=== PATIENT | female | born 1960 | race American Indian/Alaskan Native ===

== ENCOUNTER 2016-11-30 09:38 | Inpatient (IN) | payer OTHER ==
[2016-11-30] MEDS ORDERED: Sodium Chloride 0.9% 1,000 ML IV SCH ×4 (10:00→17:30)
--- NOTE | 2016-11-30 10:00 | ED PDOC ---
Arrival/HPI - General Chief Complaint: Shortness Of Breath Time Seen by Provider: 11/30/16 09:44 Historian: Patient - History of Present Illness Narrative History of Present Illness (Text): 11/30/16 09:56 56 y/o female, pmh including asthma, allergic to theophylline, biba c/o coughing /wheezing and shortness of breath x 2 days. Pt. stated that she has been coughing and feeling wheezing for the past 2 days, sudden onset, admits coughing with phelgm, limited relief with the albuterol nebulizer at home, no chest pain or palpitation, no headache or dizziness, no change in vision, no night sweat, no other medical or psychological complaints. Past Medical History - Provider Review Nursing Documentation Reviewed: Yes - Infectious Disease Hx of Infectious Diseases: None - Tetanus Immunization Tetanus Immunization: Unknown - Cardiac Hx Hypertension: Yes - Pulmonary Hx Asthma: Yes - Neurological Hx Neurological Disorder: No - HEENT Hx HEENT Disorder: (WEARS RX GLASSES) - Renal Hx Renal Disorder: No - Endocrine/Metabolic Hx Endocrine Disorders: No Hx Diabetes Mellitus Type 2: Yes - Hematological/Oncological Hx Cancer: Yes (breast to bone (14 Years)) Hx Chemotherapy: Yes (had chemo ) Other/Comment: bilat mastectomy 2007/ left arm alert - Integumentary Hx Dermatological Disorder: No - Musculoskeletal/Rheumatological Hx Arthritis: Yes - Gastrointestinal Hx Gastrointestinal Disorders: No - Genitourinary/Gynecological Hx Genitourinary Disorders: No - Psychiatric Hx Psychophysiologic Disorder: No Hx Substance Use: No - Surgical History Hx Coronary Artery Bypass Graft: Yes - Anesthesia Hx Anesthesia: Yes Hx Anesthesia Reactions: No Hx Malignant Hyperthermia: No - Suicidal Assessment Feels Threatened In Home Enviroment: No Family/Social History - Physician Review Nursing Documentation Reviewed: Yes Family/Social History: Unknown Family HX Smoking Status: Never Smoked Hx Alcohol Use: No Hx Substance Use: No Hx Substance Use Treatment: No Allergies/Home Meds Allergies/Adverse Reactions: Allergies theophylline Allergy (Verified 11/30/16 13:20) ITCHING Home Medications: Home Meds Medication Instructions Recorded Confirmed Albuterol Sulfate [Proair Hfa] 2 puff IH PRN PRN 11/30/16 11/30/16 Carvedilol [Coreg] mg PO DAILY 11/30/16 Denosumab [Xgeva] 120 mg SC 11/30/16 Glimepiride 2 mg PO DAILY 11/30/16 11/30/16 Insulin Detemir [Levemir] 24 unit SQ HS 11/30/16 11/30/16 Insulin Lispro [humALOG] 7 units SQ TID PRN 11/30/16 11/30/16 Lactobacillus Combination No.8 1 tab PO DAILY 11/30/16 11/30/16 [Adult Probiotic] Letrozole 2.5 mg PO DAILY 11/30/16 11/30/16 Palbociclib [Ibrance] 75 mg PO DAILY 11/30/16 11/30/16 Tiotropium [place] Inhaler 2 puff INH PRN PRN 11/30/16 11/30/16 [Spiriva Inhalation Handihaler Device] Review of Systems - Review of Systems Constitutional: Fatigue. absent: Fevers Eyes: absent: Vision Changes ENT: absent: Hearing Changes Respiratory: SOB, Cough, Wheezing. absent: Sputum Cardiovascular: absent: Chest Pain Gastrointestinal: absent: Abdominal Pain, Diarrhea, Nausea, Vomiting Skin: absent: Rash, Pruritis Neurological: absent: Headache, Dizziness, Focal Weakness Physical Exam Vital Signs Reviewed: Yes Vital Signs Temp Pulse Resp BP Pulse Ox 11/30/16 13:00 99.4 F 112 H 19 145/94 H 96 11/30/16 11:24 133 H 18 175/120 H 95 11/30/16 11:11 137 H 162/105 H 11/30/16 11:10 137 H 19 162/105 H 96 11/30/16 10:55 100.4 F H 11/30/16 10:04 134 H 18 181/120 H 95 11/30/16 09:45 18 96 11/30/16 09:44 99.3 F 138 H 26 H 171/123 H 93 L Temperature: Afebrile Blood Pressure: Hypertensive Pulse: Tachycardic Respiratory Rate: Tachypneic Appearance: Positive for: Well-Appearing, Non-Toxic, Uncomfortable Pain Distress: None Mental Status: Positive for: Alert and Oriented X 3 - Systems Exam Head: Present: Atraumatic, Normocephalic Pupils: Present: PERRL Extroacular Muscles: Present: EOMI Conjunctiva: Present: Normal Mouth: Present: Moist Mucous Membranes Neck: Present: Normal Range of Motion Respiratory/Chest: Present: Clear to Auscultation, Good Air Exchange, Wheezes, Decreased Breath Sounds (bilateral), Rales, Rhonchi, Tachypneic. No: Respiratory Distress, Accessory Muscle Use, Retracting, Tender to Palpation Cardiovascular: Present: Regular Rate and Rhythm, Normal S1, S2. No: Murmurs Abdomen: Present: Normal Bowel Sounds. No: Tenderness, Distention, Peritoneal Signs Back: Present: Normal Inspection Upper Extremity: Present: Normal Inspection. No: Cyanosis, Edema Lower Extremity: Present: Normal Inspection. No: Edema Neurological: Present: GCS=15, Speech Normal, Motor Func Grossly Intact, Gait Normal, Memory Normal Skin: Present: Warm, Dry, Normal Color. No: Rashes Psychiatric: Present: Alert, Oriented x 3, Normal Insight, Normal Concentration Medical Decision Making ED Course and Treatment: 11/30/16 09:58 -labs/ua/troponinVBG -ekg/cxr -IVF @ 75cc/hr./solumedrol/duoneb/oxygen 4L nasal -Observe and reassess 11/30/16 10:34 -Pt. tachycardic, tachypnea, hypoxic, lactic acid 3.7 with code sepsis activated , IV rocephine and azithromycin with blood cultures added. -Pt is not hypotensive, discussed with Dr. Treviño and stated that no indication of IV bolus indicated for 30cc/kg at this time. 11/30/16 10:50 -Sinus Tachycardia @ 135 BPM, no specific ST and T wave changes on the ekg. -Chest xray: infiltrate and scattering on the rt. sided lung wet read which clinically suspecting for pneumonia is high. -Labs are non significant except lactic acid 3.7 with normal wbc, negative d- dimer, negative bnp, negative troponin. IVF changed to 1000cc/hr, will recheck temp. 11/30/16 11:04 -Temp checked 100.4F, tylenol ordered. -Chronic hypertensive, didn't take medication for the past couple days, will give clonidine 0.1mg po -Dr. Padilla (covering Dr. Blackwell) is here and discussed the patient with him including labs/radiology results and medications given in the ER, will admit the patient, request ICU consult. 11/30/16 11:12 -I spoke to the game warden Dr. Loomis, discussed about the case/labs/ radiology image, will come to evaluate the patient to see if the patient is ICU candidate. 11/30/16 11:50 -Dr. Loomis came to evaluate the patient and suggest remote tele, not ICU candidate -I spoke to the clinical specialist medical device for Dr. Padilla, discussed about the case/labs/ radiology result/ICU Dr. Loomis suggestion to tele since I am unable to get in touch with Dr. Padilla after paging overhead. The clinical specialist medical device will come to evaluate the patient and speak to Dr. Padilla. -I spoke to Dr. Treviño and he will put in the admission - Lab Interpretations Lab Results: 11/30/16 10:06 11/30/16 10:06 Lab Results 11/30/16 10:06: pO2 29 L, VBG pH 7.35, VBG pCO2 52.0, VBG HCO3 28.7 H, VBG Total CO2 30.3 H, VBG O2 Sat (Calc) 62.8, VBG Base Excess 2.1 H, VBG Potassium 3.5 L, Sodium 142.0, Chloride 102.0, Glucose 250 H, Lactate 3.7 H, FiO2 21.0, Venous Blood Potassium 3.5 L 11/30/16 10:06: Sodium 142, Chloride 102, Potassium 3.6, Carbon Dioxide 26, Anion Gap 18, BUN 10, Creatinine 0.8, Est GFR ( Amer) > 60, Est GFR (Non- Af Amer) > 60, Random Glucose 242 H, Calcium 9.4, Total Bilirubin 0.5, AST 24, ALT 27, Alkaline Phosphatase 76, Lactate Dehydrogenase 586, Total Creatine Kinase 109, Troponin I < 0.01, NT-Pro-B Natriuret Pep 97.6, Total Protein 8.0, Albumin 4.8, Globulin 3.2, Albumin/Globulin Ratio 1.5 11/30/16 10:06: D-Dimer, Quantitative 0.35 11/30/16 10:06: WBC 5.8 D, RBC 4.14, Hgb 12.5, Hct 38.7, MCV 93.5, MCH 30.2, MCHC 32.3, RDW 14.1, Plt Count 243, MPV 9.7, Gran % 61.2, Lymph % (Auto) 34.0, [place] % (Auto) 3.4, Eos % (Auto) 0.7 L, Baso % (Auto) 0.7, Gran # 3.57, Lymph # 2.0, [place] # 0.2, Eos # 0.0, Baso # 0.04 I have reviewed the lab results: Yes Interpretation: Abnormal lab values (lactic acid. 3.7) - RAD Interpretation Radiology Orders: 11/30/16 09:52 CHEST PORTABLE [RAD] Stat no active disease Inside Account Representative: Radiologist - EKG Interpretation EKG Interpretation (Text): 11/30/16 10:12 Sinus Tachycardia @ 135 BPM, no specific ST and T wave changes on the ekg. Interpreted by ED Physician: Yes Type: 12 lead EKG Comparison: Com.w/previous EKG - Medication Orders Current Medication Orders: Carvedilol (Coreg) 3.125 mg PO DAILY MIGUELANGEL Ceftriaxone Sodium (Rocephin 1 Gram Ivpb) 1 gm in 100 mls @ 100 mls/hr IVPB DAILY MIGUELANGEL PRN Reason: Protocol Azithromycin (Zithromax 500mg In Ns) 500 mg in 250 mls @ 167 mls/hr IVPB DAILY MIGUELANGEL PRN Reason: Protocol Insulin Human Lispro (Humalog Low) 0 units SC ACHS MIGUELANGEL PRN Reason: Protocol Letrozole (Femara) 2.5 mg PO DAILY MIGUELANGEL Levalbuterol HCl (Xopenex) 0.63 mg IH Q2H PRN PRN Reason: Shortness of Breath Levalbuterol HCl (Xopenex) 0.63 mg IH [id number] MIGUELANGEL Methylprednisolone (Solu-Medrol) 40 mg IVP Q12 MIGUELANGEL Non-Formulary Medication (Lactobacillus Combination No.8 [Adult Probiotic]) 1 tab PO DAILY MIGUELANGEL Non-Formulary Medication (Palbociclib [Ibrance]) 75 mg PO DAILY MIGUELANGEL Tiotropium [place] (Spiriva) 18 mcg IH DAILY MIGUELANGEL Discontinued Medications Acetaminophen (Tylenol 325mg Tab) 650 mg PO STAT STA Stop: 11/30/16 10:58 Last Admin: 11/30/16 11:12 Dose: 650 mg Re-Assess: NAHUN Pain/Vitals Document 11/30/16 13:00 SF (Rec: 11/30/16 13:23 SF [facility] [id number]) Vitals Temperature (97.6 F-99.6 F) 99.4 F Temperature Source Rectal Albuterol/Ipratropium (Duoneb 3 Mg/0.5 Mg (3 Ml) Ud) 3 ml IH Q15M MIGUELANGEL Stop: 11/30/16 10:31 Last Admin: 11/30/16 10:35 Dose: 3 ml Aspirin (Aspirin) 325 mg PO STAT STA Stop: 11/30/16 10:34 Last Admin: 11/30/16 10:44 Dose: 325 mg Clonidine HCl (Catapres) 0.1 mg PO STAT STA Stop: 11/30/16 11:06 Last Admin: 11/30/16 11:11 Dose: 0.1 mg Sodium Chloride (Sodium Chloride 0.9%) 1,000 mls @ 75 mls/hr IV .[id number] MIGUELANGEL Last Admin: 11/30/16 10:02 Dose: 75 mls/hr Ceftriaxone Sodium (Rocephin 1 Gram Ivpb) 1 gm in 100 mls @ 200 mls/hr IVPB STAT STA PRN Reason: Protocol Stop: 11/30/16 11:01 Last Admin: 11/30/16 10:44 Dose: 200 mls/hr Azithromycin (Zithromax 500mg In Ns) 500 mg in 250 mls @ 167 mls/hr IVPB STAT STA PRN Reason: Protocol Stop: 11/30/16 12:01 Last Admin: 11/30/16 11:35 Dose: 167 mls/hr Sodium Chloride (Sodium Chloride 0.9%) 1,000 mls @ 1,000 mls/hr IV .Q1H MIGUELANGEL Stop: 11/30/16 11:48 Last Admin: 11/30/16 10:56 Dose: 1,000 mls/hr Sodium Chloride (Sodium Chloride 0.9%) 1,000 mls @ 500 mls/hr IV .Q2H MIGUELANGEL Stop: 11/30/16 13:44 Last Admin: 11/30/16 12:35 Dose: 500 mls/hr Levalbuterol HCl (Xopenex) 0.63 mg IH [id number] PRN PRN Reason: Shortness of Breath Methylprednisolone (Solu-Medrol) 125 mg IVP STAT STA Stop: 11/30/16 09:53 Last Admin: 11/30/16 10:02 Dose: 125 mg Morphine Sulfate (Morphine) 2 mg IVP STAT STA Stop: 11/30/16 12:48 Last Admin: 11/30/16 13:00 Dose: 2 mg Re-Assess: NAHUN Pain Assessment Document 11/30/16 14:00 CLINT (Rec: 11/30/16 14:08 CLINT [email or web address]) Pain Reassessment Is this a pain reassessment? Yes Sleep Is patient sleeping during reassessment? No Presence of Pain Presence of Pain No - PA / MANAGER [employer] / Resident Statement MD/DO has reviewed & agrees with the documentation as recorded. Disposition/Present on Arrival - Present on Arrival Any Indicators Present on Arrival: No History of DVT/PE: No History of Uncontrolled Diabetes: Yes Urinary Catheter: No History of Decub. Ulcer: No History Surgical Site Infection Following: None - Disposition Have Diagnosis and Disposition been Completed?: Yes Diagnosis: Sepsis, Hypoxic, Asthma exacerbation, Fever Disposition: HOSPITALIZED Disposition Time: 10:36 Patient Plan: Admission Patient Problems: Current Active Problems Problem Status Onset Asthma exacerbation Acute Sepsis Acute Hypoxic Acute Fever Acute Condition: GUARDED
[2016-11-30] MEDS: Albuterol-Ipratrop 3 mg / 0.5 (3 ml) UD IH SCH ×3 (10:02→10:35)
[2016-11-30 10:08] LABS: ADD MANUAL DIFF? NO
[2016-11-30 10:13] LABS: BASO # 0.04 K/mm3 (0.0-2.0); BASO % 0.7 % (0.0-3.0); EOS % 0.7 % (1.5-5.0); GRAN # 3.57 (1.4-6.5); GRAN % 61.2 % (50.0-68.0); HEMATOCRIT 38.7 % (36.0-48.0); MEAN CELL VOLUME 93.5 fl (80.0-105.0); MEAN CORPUSCULAR HEMOGLOBIN 30.2 pg (25.0-35.0); MEAN CORPUSCULAR HGB CONC 32.3 g/dl (31.0-37.0); MEAN PLATELET VOLUME 9.7 fl (7.0-11.0); MONO # 0.2 (0.1-0.6); MONO % 3.4 % (1.0-6.0); PLATELET COUNT 243 10^3/uL (120.0-450.0); RED CELL DISTRIBUTION WIDTH 14.1 % (11.5-14.5); WHITE BLOOD COUNT 5.8 10^3/ul (4.5-11.0)
[2016-11-30 10:14] LABS: VENOUS BLOOD GAS BASE EXCESS 2.1 mmol/L (0.0-2.0); VENOUS BLOOD PH 7.35 (7.32-7.43)
[2016-11-30 10:26] LABS: ALB/GLOB RATIO 1.5 (1.1-1.8); ALKALINE PHOSPHATASE 76 U/L (38-133); ALT/SGPT 27 U/L (7-56); AST/SGOT 24 U/L (15-39); BILIRUBIN,TOTAL 0.5 mg/dL (0.2-1.3); BLOOD UREA NITROGEN 10 mg/dL (7-21); CALCIUM 9.4 mg/dL (8.4-10.5); CARBON DIOXIDE 26 mmol/L (21-33); CHLORIDE 102 mmol/L (98-107); GFR AFRICAN-AMERICAN > 60; GLUCOSE,RANDOM 242 mg/dL (70-110); POTASSIUM 3.6 mmol/L (3.6-5.0); SODIUM 142 mmol/L (132-148)
[2016-11-30] MEDS ORDERED: Azithromycin 500MG/NS 250ml 500 MG/250 ML BAG IVPB STA (10:32)
[2016-11-30] MEDS ORDERED: cefTRIAXone 1 gm 1 GM/100 ML BAG IVPB STA (10:32)
[2016-11-30 10:42] LABS: TROPONIN I < 0.01 ng/mL
--- NOTE | 2016-11-30 11:16 | RAD ---
HISTORY: cough and wheezing COMPARISON: 03/06/2016 FINDINGS: LUNGS: No active pulmonary disease. PLEURA: No significant pleural effusion identified, no pneumothorax apparent. CARDIOVASCULAR: Normal. OSSEOUS STRUCTURES: No significant abnormalities. VISUALIZED UPPER ABDOMEN: Normal. OTHER FINDINGS: None. IMPRESSION: No active disease.
[2016-11-30] MEDS ORDERED: Tiotropium 18 mcg Cap For Inhalation INH PRN (12:14)
[2016-11-30] MEDS ORDERED: Albuterol-Ipratrop 3 mg / 0.5 (3 ml) UD IH PRN (12:20)
[2016-11-30 12:23] LABS: URINE BILIRUBIN NEGATIVE (NEGATIVE); URINE BLOOD SMALL (NEGATIVE); URINE GLUCOSE (UA) 500 mg/dL (NEGATIVE); URINE KETONE NEGATIVE (NEGATIVE); URINE LEUKOCYTE ESTERASE NEGATIVE Leu/uL (NEGATIVE); URINE PROTEIN TRACE mg/dL (<30 mg/dL); URINE UROBILINOGEN 0.2 E.U./dL (<1 E.U./dL)
[2016-11-30 12:25] LABS: URINE APPEARANCE CLEAR (CLEAR); URINE COLOR LIGHT YELLOW (YELLOW)
--- NOTE | 2016-11-30 12:27 | CP.PCM.CON ---
History of Present Illness - History of Present Illness History of Present Illness: Patient is 56yo female with PMhx of Asthma, on nebulizers at home, presents to the ER complaining of dry non productive cough which started this morning, associated with SOB and wheezing. Pt reports shes been SOB/wheezing for 2 days, without any alleviation from albuterol which she has been using frequently over last 2 days. Denies fever, chills, chest pain, palpitations, AGUILAR, dizziness. No other constitutional symptoms. In the ER given Kaitlin Gagnon. PMHx: Asthma, DM, HT PSHx: NONE Allergies: Theophylline Meds: as per EMR FHx: NC Review of Systems - Review of Systems Review of Systems: as per HPI Past Patient History - Infectious Disease Hx of Infectious Diseases: None - Tetanus Immunizations Tetanus Immunization: Unknown - Past Social History Smoking Status: Never Smoked - CARDIAC Hx Hypertension: Yes - PULMONARY Hx Asthma: Yes - NEUROLOGICAL Hx Neurological Disorder: No - HEENT Hx HEENT Problems: (WEARS RX GLASSES) - RENAL Hx Chronic Kidney Disease: No - ENDOCRINE/METABOLIC Hx Endocrine Disorders: No Hx Diabetes Mellitus Type 2: Yes - HEMATOLOGICAL/ONCOLOGICAL Hx Cancer: Yes (breast to bone (14 Years)) Hx Chemotherapy: Yes (had chemo ) Other/Comment: bilat mastectomy 2006/ left arm alert - INTEGUMENTARY Hx Dermatological Problems: No - MUSCULOSKELETAL/RHEUMATOLOGICAL Hx Arthritis: Yes - GASTROINTESTINAL Hx Gastrointestinal Disorders: No - GENITOURINARY/GYNECOLOGICAL Hx Genitourinary Disorders: No - PSYCHIATRIC Hx Psychophysiologic Disorder: No Hx Substance Use: No - SURGICAL HISTORY Hx Coronary Artery Bypass Graft: Yes - ANESTHESIA Hx Anesthesia: Yes Hx Anesthesia Reactions: No Hx Malignant Hyperthermia: No Meds Allergies/Adverse Reactions: Allergies Allergy/AdvReac Type Severity Reaction Status Date / Time theophylline Allergy ITCHING Verified 12/18/15 15:15 - Medications Medications: Current Medications Albuterol/Ipratropium (Duoneb 3 Mg/0.5 Mg (3 Ml) Ud) 3 ml IH [id number] MIGUELANGEL Carvedilol (Coreg) 3.125 mg PO DAILY MIGUELANGEL Sodium Chloride (Sodium Chloride 0.9%) 1,000 mls @ 500 mls/hr IV .Q2H MIGUELANGEL Stop: 11/30/16 13:44 Insulin Human Lispro (Humalog Low) 0 units SC ACHS MIGUELANGEL PRN Reason: Protocol Non-Formulary Medication (Lactobacillus Combination No.8 [Adult Probiotic]) 1 tab PO DAILY MIGUELANGEL Tiotropium [place] (Spiriva) 18 mcg IH DAILY MIGUELANGEL Physical Exam - Constitutional Appears: Well, Non-toxic - Head Exam Head Exam: ATRAUMATIC - Eye Exam Eye Exam: EOMI, Normal appearance - ENT Exam ENT Exam: Mucous Membranes Moist - Respiratory Exam Respiratory Exam: Prolonged Expiratory Phase, Wheezes, NORMAL BREATHING PATTERN - Cardiovascular Exam Cardiovascular Exam: REGULAR RHYTHM, +S1, +S2 - GI/Abdominal Exam GI & Abdominal Exam: Normal Bowel Sounds, Soft - Extremities Exam Extremities exam: Positive for: normal inspection - Neurological Exam Neurological exam: Alert, CN II-XII Intact, Oriented x3 Results - Vital Signs Recent Vital Signs: Last Vital Signs Temp 100.4 F H 11/30/16 10:55 Pulse 133 H 11/30/16 11:24 Resp 18 11/30/16 11:24 BP 175/120 H 11/30/16 11:24 Pulse Ox 95 11/30/16 11:24 - Labs Result Diagrams: 11/30/16 10:06 11/30/16 10:06 - Imaging and Cardiology Chest x-ray Status: Image reviewed by me, Report reviewed by me Assessment & Plan - Assessment and Plan (Free Text) Assessment: 56yo female a/w SOB - currently febrile, HD stable, tachy HR 120s - AAOx3, NAD, on exam diffuse wheezing - CXR without focal consolidation - unclear why patient is persistently tachy, (febrile, has been using VIANEY over last 2 days) Recommend - IV steroids - Rocephin, Azithro - BP control - Cardiac Enzymes - LE Duplex - ECHO - FS control - DVT ppx - monitor on telemetry Critical Care time: 35minutes
--- NOTE | 2016-11-30 12:46 | CP.PCM.HP ---
History of Present Illness - History of Present Illness History of Present Illness: Internal Medicine Note - [facility] PGY 1 CC: SOB 56 AA F w PMHx significant for asthma, breast cancer s/p b/l mastectomy on chemotherapy, HTN, and HLD presented with SOB of 2 days duration. Patient states that she took her brovana, albuterol, and two nebulizer treatments at home to no avail. Patient states that her current symptoms are consistent with past asthma attacks. Patient denies any sick contacts, any recent fatigue, f/ch /n/v/d/cp, nor any recent illness. She does state that she recently started having post nasal drip yesterday as well as a cough. PMD: Dr. Blackwell PSH: b/l mastectomy PMH: asthma, breast cancer, HTN, HLD All: Theophylline SHx: Denies tobacco, EtOH, illicits Fam Hx: Non-contributory Present on Admission - Present on Admission Any Indicators Present on Admission: Yes Review of Systems - Hematologic/Lymphatic Additional comments: ROS: Constitutional: pt denies fever, chills, generalized weakness ENT: pt denies dysphagia, otalgia, hearing deficit, rhinorrhea Eyes: pt denies sudden loss of vision, diplopia, blurred vision MSK: +unilateral L knee pain due to recent meniscus tear; lower back pain; pt denies muscle stiffness, joint pain, extremity cramping Cardio: pt denies heart murmur, cp Pulm: +See hpi GI: pt denies loss of appetite, abdominal pain, constipation, melena, n/v/d : pt denies burning on urination, urinary frequency, hematuria, urinary urgency Neuro: pt denies paresis, paresthesia, dizziness, flores, numbness, tingling Derm: pt denies skin changes, lesions, nail changes Endo: pt denies intolerance to heat/cold, diaphoresis, night sweats, polydipsia Psych: pt denies anxiety, depression, mood changes Past Patient History - Infectious Disease Hx of Infectious Diseases: None - Tetanus Immunizations Tetanus Immunization: Unknown - Past Social History Smoking Status: Never Smoked - CARDIAC Hx Hypertension: Yes - PULMONARY Hx Asthma: Yes - NEUROLOGICAL Hx Neurological Disorder: No - HEENT Hx HEENT Problems: (WEARS RX GLASSES) - RENAL Hx Chronic Kidney Disease: No - ENDOCRINE/METABOLIC Hx Endocrine Disorders: No Hx Diabetes Mellitus Type 2: Yes - HEMATOLOGICAL/ONCOLOGICAL Hx Cancer: Yes (breast to bone (14 Years)) Hx Chemotherapy: Yes (had chemo ) Other/Comment: bilat mastectomy 2006/ left arm alert - INTEGUMENTARY Hx Dermatological Problems: No - MUSCULOSKELETAL/RHEUMATOLOGICAL Hx Arthritis: Yes - GASTROINTESTINAL Hx Gastrointestinal Disorders: No - GENITOURINARY/GYNECOLOGICAL Hx Genitourinary Disorders: No - PSYCHIATRIC Hx Psychophysiologic Disorder: No Hx Substance Use: No - SURGICAL HISTORY Hx Coronary Artery Bypass Graft: Yes - ANESTHESIA Hx Anesthesia: Yes Hx Anesthesia Reactions: No Hx Malignant Hyperthermia: No Meds Allergies/Adverse Reactions: Allergies Allergy/AdvReac Type Severity Reaction Status Date / Time theophylline Allergy ITCHING Verified 11/30/16 13:20 Physical Exam - Additional Findings Additional findings: Phys Exam: VS as below Constitutional: a&o x 4, nad Head and Neck: neck supple, no jvd, trachea midline, carotid midline, no cervical/head mass Eyes: lance, nonicteric sclera, eom intact ENT: auditory acuity grossly intact, throat not congested, no nasal deformity Cardio:+tachycardic; regular rhythm, no m/r/g, no carotid bruit, nml s1, s2 Pulm: no accessory muscle use, equal nml breath sounds bilaterally, ctab Abd: s/nt/nd, nbs x 4 q, no palpable masses Derm: no rashes, no ulcers, no lesions Extr: +pain limited ROM of L knee; no edema, no cyanosis, no calf tenderness, no lesions, no varicosities Neuro: cn II-XII grossly intact, ue and le 5/5 muscle strength bilaterally, no los ue, le bilaterally and core Results - Vital Signs Recent Vital Signs: Last Vital Signs Temp 100.4 F H 11/30/16 10:55 Pulse 133 H 11/30/16 11:24 Resp 18 11/30/16 11:24 BP 175/120 H 11/30/16 11:24 Pulse Ox 95 11/30/16 11:24 - Labs Result Diagrams: 11/30/16 10:06 11/30/16 10:06 Labs: Laboratory Results - last 24 hr 11/30/16 12:18 Urine Color Light yellow Urine Appearance Clear Urine pH 7.0 Ur Specific [place] 1.015 Urine Protein Trace H Urine Glucose (UA) 500 H Urine Ketones Negative Urine Blood Small H Urine Nitrate Negative Urine Bilirubin Negative Urine Urobilinogen 0.2 Ur Leukocyte Esterase Negative Assessment & Plan - Assessment and Plan (Free Text) Assessment: This is a 55 yo F with history of asthma, breast cancer s/p b/l mastectomy on chemotherapy, HTN, and HLD who presents with chief complaint of shortness of breath. Admitted to telemetry due to tachycardia Plan: 1) Shortness of breath likely 2/2 Asthma Exacerbation VS Pneumonia VS PE - Satting 95-100% on RA after Duonebs treatments and O2 2L - No history of prior blood clots, but active cancer so at increased risk for clots - no clinical signs of DVT, d-dimer negative, PE unlikely - EKG in ED notable for tachycardia and non-specific t-wave abnormalities, repeat EKG in AM - 1 x 125mg IV solumedrol in ED, 40mg BID IV ordered - Continue Xopenex, q6 scheduled q2 prn; continue home medications 2) SIRS 2 VS Sepsis - Elevated HR 2/2 stress vs breathing treatments, vs tachyarrhythmia vs infection - Fever at 100.4 - Lactate elevated - CXR was normal, cannot ID another source of infection - Currently hemodynamically stable - Rocephin and Azithromycin started empirically - NS at 100 mls/hr - Continue to monitor 3) HTN - Elevated BP on arrival, SBP > 180, improved since arrival - Restarted home Cozaar - Continue to monitor 4) DM -continue home oral antihyperglycemics -fingersticks ACHS Dispo: Telemetry FEN: Heart-healthy diet Access: Peripheral IV Consults: none Ppx: Protonix for GI, SCDs for DVT (pt has refused lovenox in the past) Case discussed, reviewed, and course of care agreed upon with Dr. Padilla.
[2016-11-30] MEDS ORDERED: Morphine 2 mg/ml ISec IVP STA (12:47)
[2016-11-30 12:51] LABS: URINE BACTERIA FEW (NEG); URINE WBC 0 - 2 /hpf (0-6)
[2016-11-30 12:57] LABS: ARTERIAL BLOOD GAS HCO3 22.6 mmol/L (21-28); ARTERIAL BLOOD GAS PH 7.43 (7.35-7.45)
[2016-11-30] MEDS ORDERED: Levalbuterol 0.63 MG/3 ML Inhal Soln UD IH PRN (13:11)
[2016-11-30 13:13] LABS: VENOUS BLOOD GAS BASE EXCESS -1.5 mmol/L (0.0-2.0); VENOUS BLOOD PH 7.37 (7.32-7.43)
[2016-11-30] MEDS ORDERED: Albuterol HFA 90 mcg/actuation (8 g) IH PRN (13:54)
[2016-11-30] MEDS ORDERED: Albuterol-Ipratrop 3 mg / 0.5 (3 ml) UD IH SCH (14:00)
[2016-11-30 15:39] VITALS: BMI 34.8
[2016-11-30] MEDS ORDERED: Pneumococcal 23-Valent Vaccine IM ONE (15:41)
--- NOTE | 2016-11-30 16:27 | CARD ---
APPROVED REPORT EKG Measurement Heart [id number] <Conclusion> Sinus tachycardia Nonspecific ST and T wave abnormality Abnormal ECG
--- NOTE | 2016-11-30 16:49 | PCM.SEPTIC ---
<LauraEverett summers - Last Filed: 11/30/16 17:10> Sepsis Progress Note - Reassessment Type Date of Evaluation: 11/30/16 Time of Evaluation: 04:35 Reassessment Type: Non-invasive reassessment - Non Invasive Reassessment Were the most recent vital sign reviewed: Yes Vital Sign (Latest): Temp: 99.7 Blood Pressure: 176/110 Heart Rate: 124 Respiratory Rate: 18 O2Sat: 96 Cardiovascular: Yes: Tachycardia (Regular rhythm) Respiratory: Yes: Wheezing (Mildly dyspneic) Capillary Refill: Normal (Less than 2 sec) Pulses: Normal Radial (Bounding), Normal Dorsalis Pedis (Bounding), Normal Posterior Tibialis Skin: Normal Color, Warm <Sheryl Mcdonough - Last Filed: 11/30/16 17:19> Sepsis Progress Note - Non Invasive Reassessment Vital Sign (Latest): Temp Pulse Resp BP Pulse Ox 99.4 F 112 H 19 145/94 H 96 11/30/16 15:20 11/30/16 15:20 11/30/16 15:20 11/30/16 15:20 11/30/16 13:00 Attending/Attestation - Attestation I have personally seen and examined this patient.: Yes I have fully participated in the care of the patient.: Yes I have reviewed all pertinent clinical information, including history, physical exam and plan: Yes Notes (Text): 11/30/16 17:14 Pt was evaluated at 4:35 PM Nitropaste was ordered for high BP O2 sat was 96 on 3 L O2 by NC Xopenex ordered for wheezing.
[2016-11-30] MEDS: Insulin Lispro (humaLOG) LOW Coverage SC SCH ×2 (17:15→21:35)
[2016-11-30] MEDS ORDERED: Nitroglycerin 2% Ointment Foilpak UD TOP ONE (17:25)
[2016-11-30] MEDS: Levalbuterol 0.63 MG/3 ML Inhal Soln UD IH PRN ×2 (17:57→23:06)
[2016-11-30] MEDS: Levalbuterol 0.63 MG/3 ML Inhal Soln UD IH SCH (20:15)
[2016-11-30] MEDS: MethylPREDNISolone 40 mg Vial IVP SCH (21:02)
[2016-12-01] MEDS ORDERED: MethylPREDNISolone 40 mg Vial IVP ONE (00:05)
[2016-12-01] MEDS: Levalbuterol 0.63 MG/3 ML Inhal Soln UD IH SCH ×4 (02:15→21:00)
[2016-12-01 07:40] LABS: ALB/GLOB RATIO 1.3 (1.1-1.8); ALKALINE PHOSPHATASE 69 U/L (38-133); ALT/SGPT 22 U/L (7-56); AST/SGOT 19 U/L (15-39); BILIRUBIN,TOTAL 0.4 mg/dL (0.2-1.3); BLOOD UREA NITROGEN 13 mg/dL (7-21); CALCIUM 8.2 mg/dL (8.4-10.5); CARBON DIOXIDE 24 mmol/L (21-33); CHLORIDE 105 mmol/L (95-110); CHOLESTEROL 222 mg/dL (130-200); GFR AFRICAN-AMERICAN > 60; GLUCOSE,RANDOM 267 mg/dL (70-110); MAGNESIUM 2.1 mg/dL (1.7-2.2); PHOSPHOROUS 3.6 mg/dL (2.5-4.5); POTASSIUM 3.9 mmol/L (3.6-5.0); SODIUM 141 mmol/L (132-148); TOTAL PROTEIN 7.7 g/dL (5.8-8.3)
[2016-12-01 07:46] LABS: BASO # 0.01 K/mm3 (0.0-2.0); BASO % 0.2 % (0.0-3.0); GRAN # 4.33 (1.4-6.5); GRAN % 77.9 % (50.0-68.0); HEMATOCRIT 38.6 % (36.0-48.0); LYMPH # 1.1 (1.2-3.4); LYMPH % 19.4 % (22.0-35.0); MEAN CELL VOLUME 93.7 fl (80.0-105.0); MEAN CORPUSCULAR HEMOGLOBIN 29.4 pg (25.0-35.0); MEAN CORPUSCULAR HGB CONC 31.3 g/dl (31.0-37.0); MONO # 0.1 (0.1-0.6); MONO % 2.5 % (1.0-6.0); RED CELL DISTRIBUTION WIDTH 14.6 % (11.5-14.5); WHITE BLOOD COUNT 5.6 10^3/ul (4.5-11.0)
[2016-12-01] MEDS: Insulin Lispro (humaLOG) LOW Coverage SC SCH ×4 (08:17→21:50)
[2016-12-01] MEDS: cefTRIAXone 1 gm 1 GM/100 ML BAG IVPB SCH (09:22)
[2016-12-01] MEDS: MethylPREDNISolone 40 mg Vial IVP SCH ×2 (09:22→21:50)
[2016-12-01] MEDS: Tiotropium 18 mcg Cap For Inhalation IH SCH (09:22)
[2016-12-01] MEDS: Sodium Chloride 0.45% 1,000 ML IV SCH (09:23)
[2016-12-01] MEDS: LACTOBACILLUS COMBINATION NO 8 PO SCH (09:32)
[2016-12-01] MEDS ORDERED: PALBOCICLIB 75 MG PO SCH (10:00)
[2016-12-01] MEDS: Azithromycin 500MG/NS 250ml 500 MG/250 ML BAG IVPB SCH (11:01)
[2016-12-01] MEDS: Levalbuterol 0.63 MG/3 ML Inhal Soln UD IH PRN (18:12)
[2016-12-01] MEDS ORDERED: guaiFENesin DM 100 mg-10 mg/5 ml UD PO PRN (19:30)
--- NOTE | 2016-12-01 19:34 | CON ---
DATE: 12/01/2016 The patient was seen and examined at bedside. We were asked by Dr. Campbell, high school social studies tutor, to evaluate and treat this 56 years old -[place] female who comes into [facility] with chief complaint of shortness of breath, wheezing and cough. HISTORY OF PRESENT ILLNESS: The patient developed signs of upper respiratory infection 5 days ago. This progressed with symptoms of bronchitis and final exacerbation of asthma. She did nebulizer treatments at home, but was not able to decrease her symptoms and that is why she came to emergency room. PAST MEDICAL HISTORY: Positive for bronchial asthma, breast cancer, status post bilateral mastectomy, hypertension. ALLERGIES: SHE IS ALLERGIC TO THEOPHYLLINE. SOCIAL HISTORY: Nonsmoker. Nondrinker. Never used illicit drugs. FAMILY HISTORY: No history of inherited diseases. PRIMARY CARE PHYSICIAN: Dr. Blackwell. DIESEL SCOOP OPERATOR: Dr. Braga. REVIEW OF SYSTEMS: Review of systems was conducted by reviewing all sources. CONSTITUTIONAL: No fever, but shortness of breath and cough. EARS, NOSE, AND THROAT: Nasal congestion. NECK: No complaints. CHEST: See history of present illness. CARDIOVASCULAR: Negative. GI: Negative. The rest of the systems were reviewed and found to be negative. PHYSICAL EXAMINATION: VITAL SIGNS: As follows; temperature 98, respirations 22, pulse is 96, blood pressure 110/70. HEAD, EARS, NOSE, AND THROAT: Normocephalic and atraumatic. CARDIOVASCULAR: S1 and S2. No S3, irregular. CHEST: Status post bilateral mastectomy. PULMONARY: Diffuse bilateral expiratory and inspiratory wheezes and moderate airway obstruction. GASTROINTESTINAL: Soft, nontender. There was no organomegaly. : Within normal limits EXTREMITIES: No pedal edema. NEUROLOGIC: No focal deficits. SKIN: Clear with no cyanosis and no skin rashes. LABORATORY DATA: WBC is 5.8, hemoglobin of 12.5, platelet count of 243,000. Chemistries are normal except for elevated blood sugar at 240. ASSESSMENT: 1. Exacerbation of bronchial asthma. 2. Acute bronchitis. 3. Breast cancer, status post bilateral mastectomy, on chemotherapy. 4. Hypertension. PLAN: The patient's chest x-ray does not reveal pneumonia. Her D-dimer is negative. Current diagnosis is exacerbation of asthma secondary to acute bronchitis. We will treat with intravenous steroids. Intravenous antibiotics as ordered already and nebulized Brovana and budesonide as well as Spiriva that she is remaining on. Rocephin and azithromycin was started already. The patient's condition started to improve. We will follow closely. We will evaluate differential and CBC. If her eosinophil count is elevated, she may be a candidate of Nucala. Todd Werner MD MTDD
[2016-12-01] MEDS: Fluticasone Nasal 50 mcg/Spray NS PRN (19:55)
--- NOTE | 2016-12-01 19:59 | PN ---
DATE: I am covering Dr. Blackwell today, who is off. SUBJECTIVE: I saw Niru resting in bed. She has oxygen on, IV fluids running, and she is short of breath, little bit of a wheeze, lying in bed. She got some IV Solu-Medrol. I will consult Pulmonary and Cardio. Blood pressure is quite high. She is uncomfortable and using oxygen, not really hungry yet. She is a 56-year-old female with shortness of breath, today comes in, she is getting nebulizer treatments, IV Solu-Medrol. I will put her back on her insulin and diabetes medications and her blood pressure is out of control, I will put her on some blood pressure medications. I gave her Norvasc 5 mg, increased the Cozaar to 50 mg a day, called in Cardiology. PHYSICAL EXAMINATION: VITAL SIGNS: Today, she has a 98.3 temperature, 87 pulse, 168/110 blood pressure, 19 respiratory rate, 100% O2 saturation via nasal cannula. HEENT: Head atraumatic and normocephalic. Throat moist. NECK: Supple. HEART: Regular rate. LUNGS: Decreased breath sounds with wheezes, congestion, changes with cough, very tight. ABDOMEN: Soft, obese, nontender. EXTREMITIES: No edema. MEDICATIONS: She will currently be on Coreg and Cozaar at higher dose, Femara, insulin coverage, probiotic, Rocephin IV. I changed the IV fluids from 0.9 to 0.5 normal, also less rate at 40 from 50 because she is starting to swell up. Solu-Medrol, she is at 40, I will keep her at 40 IV q. 12 hours. She is on Spiriva, Tylenol, Xopenex inhaler round the clock, Zithromax IV. LABORATORY DATA: She has a 5.6 white count, 12.1 hemoglobin, 38.6 hematocrit with a 233 platelets. D-dimer was okay at 0.35. Sodium 141, potassium 3.9, BUN 30, creatinine 0.7, GFR is greater than 60. Her blood sugars have been 351, 254, 332 and 267. I will put her on her Levemir at night and her p.o. medications. Her calcium is 8.2, phosphorus is 3.6, magnesium 2.1. Total bilirubin is 0.4, AST is 19, ALT is 22, alkaline phosphatase is 69, total protein 7.7, ASSESSMENT AND PLAN: She is still tight, is having a bad chronic obstructive pulmonary disease with hypertension and elevated blood sugars. Consult Pulmonary, Cardio. Add diabetes medications. Add blood pressure medications. She is to get out of bed to chair today. I told things will start to feel better respiratorily. Tristian Campbell DO
[2016-12-01] MEDS: Insulin Detemir 100 units/ml Vial (Levemir) SC SCH (21:49)
[2016-12-02] MEDS: Levalbuterol 0.63 MG/3 ML Inhal Soln UD IH PRN ×2 (01:22→06:50)
[2016-12-02] MEDS: Levalbuterol 0.63 MG/3 ML Inhal Soln UD IH SCH ×4 (02:50→20:25)
[2016-12-02 07:42] LABS: HEMATOCRIT 38.4 % (36.0-48.0); MEAN CELL VOLUME 94.3 fl (80.0-105.0); MEAN CORPUSCULAR HEMOGLOBIN 29.2 pg (25.0-35.0); MEAN PLATELET VOLUME 9.3 fl (7.0-11.0); RED CELL DISTRIBUTION WIDTH 14.7 % (11.5-14.5); WHITE BLOOD COUNT 6.5 10^3/ul (4.5-11.0)
[2016-12-02 08:00] LABS: ALB/GLOB RATIO 1.4 (1.1-1.8); ALKALINE PHOSPHATASE 61 U/L (38-133); ALT/SGPT 24 U/L (7-56); AST/SGOT 25 U/L (15-39); BILIRUBIN,TOTAL 0.2 mg/dL (0.2-1.3); BLOOD UREA NITROGEN 16 mg/dL (7-21); CARBON DIOXIDE 24 mmol/L (21-33); CHLORIDE 105 mmol/L (98-107); GFR AFRICAN-AMERICAN > 60; GLUCOSE,RANDOM 285 mg/dL (70-110); POTASSIUM 3.9 mmol/L (3.6-5.0); SODIUM 141 mmol/L (132-148); TOTAL PROTEIN 7.2 g/dL (5.8-8.3)
[2016-12-02] MEDS: Insulin Lispro (humaLOG) LOW Coverage SC SCH (08:16)
[2016-12-02] MEDS: Sodium Chloride 0.45% 1,000 ML IV SCH (08:17)
[2016-12-02] MEDS ORDERED: Promethazine DM 6.25 mg-15 mg/5 ml Syrup PO PRN (09:31)
[2016-12-02] MEDS: LACTOBACILLUS COMBINATION NO 8 PO SCH (09:51)
[2016-12-02] MEDS: Azithromycin 500MG/NS 250ml 500 MG/250 ML BAG IVPB SCH (09:53)
[2016-12-02] MEDS: MethylPREDNISolone 40 mg Vial IVP SCH ×3 (09:54→23:30)
[2016-12-02] MEDS: Tiotropium 18 mcg Cap For Inhalation IH SCH (09:55)
--- NOTE | 2016-12-02 10:54 | CARD ---
APPROVED REPORT EKG Measurement Heart [id number] <Conclusion> Sinus rhythm with short OK Nonspecific ST and T wave abnormality Abnormal ECG
[2016-12-02] MEDS: cefTRIAXone 1 gm 1 GM/100 ML BAG IVPB SCH ×2 (11:18→14:55)
[2016-12-02] MEDS: Insulin Lispro (humaLOG) MEDIUM Coverage SC SCH ×2 (11:37→16:25)
--- NOTE | 2016-12-02 13:10 | PN ---
PULMONARY PROGRESS NOTE DATE: 12/02/2016 SUBJECTIVE: The patient was seen and examined at bedside. She is coughing frequently. She is still moderately short of breath and wheezing on exam. She was given emergency treatments with nebulizer, treatment with Xopenex; however she is still in moderate bronchospasm. PHYSICAL EXAMINATION VITAL SIGNS: Her temperature is 98.6, pulse 106, respirations 20, pulse oximetry is 100 on nasal cannula, blood pressure is 148/98. Her intake and output is positive 1000 mL. HEENT: Within normal limits. NECK: Supple. There is no jugular vein distention. CARDIOPULMONARY: S1 and S2, no S3. Regular. LUNGS: There is diffuse bilateral expiratory and inspiratory wheezes with moderate airway obstruction. No crackles. ABDOMEN: Soft, nontender. There is no organomegaly. EXTREMITIES: Trace pedal edema. SKIN: Clear. There is no cyanosis and no skin rashes. NEUROLOGIC: Limited at present time. I reviewed her today's blood work; her chemistries are normal except for elevation of blood sugar. Her WBC is 6.5, hemoglobin of 11.9. I reviewed the patient's chest x-ray, which is clear. ASSESSMENT: 1. Exacerbation of severe bronchial asthma. 2. Acute bronchitis. 3. Inability to clear secretions. 4. Breast cancer, status post bilateral mastectomy, on chemotherapy. 5. Hypertension. PLAN: The patient has not improved, still in moderate bronchospasm,very uncomfortable and coughing nonstop. We will introduce Mucomyst to add aid expectoration. We will discontinue Robitussin and start Phenergan and Codeine for cough. Intravenous steroids will continue at moderately high dose. Antibiotics and nebulizer treatments as well as chest physical therapy will be ordered. Todd Werner MD MTDD
[2016-12-02] MEDS: Acetylcysteine 20% Inhal Soln (4ml) IH SCH (20:25)
[2016-12-02] MEDS: Insulin Detemir 100 units/ml Vial (Levemir) SC SCH (23:31)
--- NOTE | 2016-12-03 00:37 | PN ---
SUBJECTIVE: I saw her resting comfortably in bed. She is more shortness of breath this morning, coughing and congested even though she is getting breathing treatments and on IV Solu-Medrol. She feels worse than yesterday and did not sleep well last night. PHYSICAL EXAMINATIONS: VITAL SIGNS: Temperature 98.7, pulse 97, blood pressure 133/96, respiratory rate 20, and 100% O2 saturation on nasal cannula. HEENT: Head is atraumatic and normocephalic. Throat moist. NECK: Supple. HEART: Regular rate. LUNGS: Decreased breath sounds, poor rales, congestion, wheezing, changes with cough and worse than yesterday, I agree with her. ABDOMEN: Soft, obese, nontender, positive bowel sound. EXTREMITIES: No edema. MEDICATIONS: She is on N-acetylcysteine, Amaryl, Coreg and Cozaar. I will increase the Cozaar to 100 mg since the blood pressure has pumped up, Femara, Flonase, insulin, lactobacillus, Levemir, Norvasc, Phenergan, Rocephin, IV fluids, Solu-Medrol bump up from 40 twice a day to three times a day, Spiriva, Tylenol, Xopenex, azithromycin, I am going to change from IV to p.o. because its bothering her wrist IV infusion and it is burning her. She does not want anymore, so I was making it to p.o. She has a 6.5 white count, 11.9 hemoglobin, 30.4 hematocrit, with a 257 platelets. Sodium 141, potassium 3.9, BUN 16, creatinine 0.7, GFR is greater than 60, sugar 285, calcium 8, total bilirubin 0.28, AST is 25, ALT 24, alkaline phosphatase 61, and total protein 7.2. ASSESSMENT AND PLAN: She is here for chronic obstructive pulmonary disease, hypertension, shortness of breath, diabetes. I am going to change the Zithromax to p.o. and I will increase the Solu-Medrol q.8. We will check her labs tomorrow. The patient a little bit worse today than yesterday. Hopefully, she will improve and steroids will start to work as per pulmonary and cardiology. Tristian Campbell DO [facility] # [id number]
[2016-12-03] MEDS: Insulin Lispro (humaLOG) MEDIUM Coverage SC SCH ×5 (01:15→21:30)
[2016-12-03] MEDS: Levalbuterol 0.63 MG/3 ML Inhal Soln UD IH SCH ×4 (01:39→20:06)
[2016-12-03] MEDS: MethylPREDNISolone 40 mg Vial IVP SCH ×3 (05:46→21:38)
[2016-12-03] MEDS: Acetylcysteine 20% Inhal Soln (4ml) IH SCH ×2 (08:01→20:06)
[2016-12-03] MEDS: Budesonide 0.5 mg/2 ml Inhal Susp UD IH SCH ×2 (08:01→20:06)
[2016-12-03 08:04] LABS: GRAN # 4.55 (1.4-6.5); GRAN % 71.9 % (50.0-68.0); HEMATOCRIT 39.9 % (36.0-48.0); LYMPH # 1.5 (1.2-3.4); LYMPH % 23.7 % (22.0-35.0); MEAN CORPUSCULAR HEMOGLOBIN 29.4 pg (25.0-35.0); MEAN CORPUSCULAR HGB CONC 31.6 g/dl (31.0-37.0); MEAN PLATELET VOLUME 9.6 fl (7.0-11.0); MONO # 0.3 (0.1-0.6); MONO % 4.4 % (1.0-6.0); RED CELL DISTRIBUTION WIDTH 14.3 % (11.5-14.5); WHITE BLOOD COUNT 6.3 10^3/ul (4.5-11.0)
[2016-12-03 08:15] LABS: ALB/GLOB RATIO 1.4 (1.1-1.8); ALKALINE PHOSPHATASE 67 U/L (38-133); ALT/SGPT 29 U/L (7-56); AST/SGOT 18 U/L (15-39); BILIRUBIN,TOTAL 0.3 mg/dL (0.2-1.3); BLOOD UREA NITROGEN 17 mg/dL (7-21); CALCIUM 8.6 mg/dL (8.4-10.5); CARBON DIOXIDE 22 mmol/L (21-33); CHLORIDE 105 mmol/L (98-107); GFR AFRICAN-AMERICAN > 60; GLUCOSE,RANDOM 250 mg/dL (70-110); SODIUM 139 mmol/L (132-148); TOTAL PROTEIN 7.4 g/dL (5.8-8.3)
[2016-12-03] MEDS: cefTRIAXone 1 gm 1 GM/100 ML BAG IVPB SCH (10:41)
[2016-12-03] MEDS: Tiotropium 18 mcg Cap For Inhalation IH SCH (10:42)
[2016-12-03] MEDS: Sodium Chloride 0.45% 1,000 ML IV SCH (10:58)
[2016-12-03] MEDS: LACTOBACILLUS COMBINATION NO 8 PO SCH (11:04)
--- NOTE | 2016-12-03 12:15 | PN ---
DATE: 12/03/2016 SUBJECTIVE: The patient appears comfortable this morning. She is not short of breath at rest. PHYSICAL EXAMINATION: VITAL SIGNS: Temperature is 98.4, pulse on the monitor is 88, respiratory rate 18/20, blood pressure 136/94. Oxygen saturation on nasal canula is 98%. HEENT: Normocephalic and atraumatic. NECK: No JVD. CARDIOVASCULAR: Positive S1 and S2. No S3 gallop. LUNGS: Decreased breath sounds at the bases. Minimal rhonchi. Minimal wheezing. GASTROINTESTINAL: Abdomen is soft, nontender, and nondistended. Bowel sounds are positive. EXTREMITIES: No clubbing, cyanosis, or edema. Calves are nontender to palpation. SKIN: No acute rash. NEUROLOGIC: Limited at the present time. IMPRESSION: 1. Acute bronchitis. 2. Asthma. 3. Hypertension. 4. History of breast cancer. PLAN: The patient appears comfortable this morning. She is not short of breath at rest. She does state to feeling better. On physical exam, only mild bronchospasm is noted. In addition, there is no significant alveolar-arterial gradient. I will continue with the current nebulizer treatments and decrease the intravenous steroids this morning. I will also start inhaled Pulmicort. The patient remains on antibiotic therapy. There are no temperatures noted. There is no leukocytosis. Clinical status of the patient is certainly improved-compared to the initial presentation. The patient is advised to be out of bed as much as possible. I will discuss the above with the attending physician. Simeon Coe MD MTDD
--- NOTE | 2016-12-03 16:15 | CP.PCM.PN ---
Subjective - Date & Time of Evaluation Date of Evaluation: 12/03/16 Time of Evaluation: 07:50 - Subjective Subjective: Pt s/e bedside. Doing much better than Saturday. Patient herself feels much better and states that she can breathe easier. No acute events. Objective - Vital Signs/Intake and Output Vital Signs (last 24 hours): Temp Pulse Resp BP Pulse Ox 98.3 F 90 20 141/96 H 98 12/03/16 12:00 12/03/16 12:00 12/03/16 12:00 12/03/16 12:00 12/03/16 06:00 Intake and Output: 12/03/16 12/03/16 06:59 18:59 Intake Total 970 Output Total 900 Balance 70 - Medications Medications: Current Medications Acetaminophen (Tylenol 325mg Tab) 650 mg PO Q6H PRN PRN Reason: Temperature Last Admin: 12/02/16 20:24 Dose: 650 mg Acetylcysteine (Acetylcysteine 20%) 4 ml IH BIDRESP [facility] Last Admin: 12/03/16 08:01 Dose: 4 ml Amlodipine Besylate (Norvasc) 5 mg PO DAILY [facility] Last Admin: 12/03/16 10:43 Dose: 5 mg Azithromycin (Zithromax) 500 mg PO DAILY [facility] PRN Reason: Protocol Last Admin: 12/03/16 10:42 Dose: 500 mg Budesonide (Pulmicort Respules) 0.5 mg IH [id number] [facility] Last Admin: 12/03/16 08:01 Dose: 0.5 mg Clonidine HCl (Catapres) 0.1 mg PO Q6H PRN PRN Reason: Systolic Blood Pressure Fluticasone Propionate (Flonase) 1 actuation NS DAILY PRN PRN Reason: NASAL CONGESTION Last Admin: 12/01/16 19:55 Dose: 1 actuation Glimepiride (Amaryl) 2 mg PO DAILY [facility] Last Admin: 12/03/16 10:43 Dose: 2 mg Ceftriaxone Sodium (Rocephin 1 Gram Ivpb) 1 gm in 100 mls @ 100 mls/hr IVPB DAILY [facility]ANG[facility] PRN Reason: Protocol Last Admin: 12/03/16 10:41 Dose: 100 mls/hr Sodium Chloride (Sodium Chloride 0.45%) 1,000 mls @ 40 mls/hr IV .Q24H [facility] Last Admin: 12/03/16 10:58 Dose: 40 mls/hr Insulin Detemir (Levemir) 15 unit SC HS [facility] Last Admin: 12/02/16 23:31 Dose: 15 unit Insulin Human Lispro (Humalog Med) 0 units SC ACHS [facility] PRN Reason: Protocol Last Admin: 12/03/16 12:06 Dose: 7 units Letrozole (Femara) 2.5 mg PO DAILY [facility] Last Admin: 12/03/16 10:45 Dose: 2.5 mg Levalbuterol HCl (Xopenex) 0.63 mg IH Q2H PRN PRN Reason: Shortness of Breath Last Admin: 12/02/16 06:50 Dose: 0.63 mg Levalbuterol HCl (Xopenex) 0.63 mg IH [id number] [facility] Last Admin: 12/03/16 14:14 Dose: 0.63 mg Losartan Potassium (Cozaar) 50 mg PO DAILY [facility] Last Admin: 12/03/16 10:43 Dose: 50 mg Methylprednisolone (Solu-Medrol) 40 mg IVP Q12 [facility] Last Admin: 12/03/16 10:48 Dose: 40 mg Non-Formulary Medication (Lactobacillus Combination No.8 [Adult Probiotic]) 1 tab PO DAILY [facility] Last Admin: 12/03/16 11:04 Dose: Not Given Promethazine HCl/Dextromethorphan (Phenergan Dm Syrup) 5 ml PO Q6H PRN PRN Reason: Cough Tiotropium [place] (Spiriva) 18 mcg IH DAILY [facility] Last Admin: 12/03/16 10:42 Dose: 18 mcg - Labs Labs: 12/03/16 07:20 12/03/16 07:20 - Additional Findings Additional findings: Phys Exam: VS as below Constitutional: a&o x 4, nad Head and Neck: neck supple, no jvd, trachea midline, carotid midline, no cervical/head mass Eyes: lance, nonicteric sclera, eom intact ENT: auditory acuity grossly intact, throat not congested, no nasal deformity Cardio:+borderline tachycardic; regular rhythm, no m/r/g, no carotid bruit, nml s1, s2 Pulm: +stridor; b/l mild wheezes; no Rales, no accessory muscle use. Abd: s/nt/nd, nbs x 4 q, no palpable masses Derm: no rashes, no ulcers, no lesions Extr: +pain limited ROM of L knee; no edema, no cyanosis, no calf tenderness, no lesions, no varicosities Neuro: cn II-XII grossly intact, ue and le 5/5 muscle strength bilaterally, no los ue, le bilaterally and core Assessment and Plan - Assessment and Plan (Free Text) Assessment: This is a 55 yo F with history of asthma, breast cancer s/p b/l mastectomy on chemotherapy, HTN, and HLD who presents with chief complaint of shortness of breath. Admitted to telemetry due to tachycardia Plan: 1) Shortness of breath likely 2/2 Asthma Exacerbation VS Pneumonia VS PE - Satting 95-100% on RA after Duonebs treatments and O2 2L - No history of prior blood clots, but active cancer so at increased risk for clots - no clinical signs of DVT, d-dimer negative, PE unlikely - EKG in ED notable for tachycardia and non-specific t-wave abnormalities, repeat EKG in AM - 1 x 125mg IV solumedrol in ED, 40mg tID IV ordered - Continue Xopenex, q6 scheduled q2 prn; continue home medications 2) SIRS 2 VS Sepsis - Elevated HR 2/2 stress vs breathing treatments, vs tachyarrhythmia vs infection - Fever at 100.4 - Lactate elevated - CXR was normal, cannot ID another source of infection - Currently hemodynamically stable - Rocephin and Azithromycin started empirically - NS at 100 mls/hr - Continue to monitor 3) HTN - Elevated BP on arrival, SBP > 180, improved since arrival - Restarted home Cozaar - Continue to monitor 4) DM -continue home oral antihyperglycemics -fingersticks ACHS Dispo: Telemetry FEN: Heart-healthy diet Access: Peripheral IV Consults: none Ppx: Protonix for GI, SCDs for DVT (pt has refused lovenox in the past) Case discussed, reviewed, and course of care agreed upon with Dr. Padilla.
[2016-12-03] MEDS: Insulin Detemir 100 units/ml Vial (Levemir) SC SCH (21:38)
[2016-12-03] MEDS: Fluticasone Nasal 50 mcg/Spray NS PRN (22:01)
--- NOTE | 2016-12-03 22:47 | CON ---
DATE: 12/03/2016 HISTORY OF PRESENT ILLNESS: The patient is a 56-year-old woman who presents with cough and dyspnea. The patient has a long history of asthma and this to her, represented an asthmatic attack. PAST MEDICAL HISTORY: Includes diabetes mellitus, hypertension. The patient's cardiac workup in the past has included stress test and an echocardiogram, which was done in August 2016. Her ejection fraction is 56% without any perfusion defects. SOCIAL HISTORY: Denies smoking. REVIEW OF SYSTEMS: A 14 point review of systems was reviewed in detail. Other than her dyspnea and cough with sputum production, there is no cardiac symptomatology. PHYSICAL EXAMINATION VITAL SIGNS: Blood pressure 140/90, heart rates in the 90s, normal sinus rhythm. NECK: Negative JVD. CARDIOPULMONARY: Heart reveals S1 and S2. LUNGS: Bilateral expiratory wheezing. EXTREMITIES: Without edema. IMAGING DATA: EKG shows normal sinus rhythm with diffuse ST-T changes. LABORATORY DATA: The glucose is 250. Troponins negative. ProBNP is normal. IMPRESSION: 1. Dyspnea. 2. Asthma. 3. Hypertension. 4. Diabetes mellitus. 5. Obesity. PLAN: Given these findings, we will discontinue her Coreg and I would suggest stopping her Coreg as an outpatient. There may be better choices for her hypertension. We will DC telemetry today. No further cardiac workup is necessary. Julio Cesar Lyons MD
[2016-12-04] MEDS: Levalbuterol 0.63 MG/3 ML Inhal Soln UD IH SCH ×4 (02:29→19:38)
--- NOTE | 2016-12-04 07:32 | PN ---
DATE: 12/04/2016 SUBJECTIVE: The patient appears comfortable this morning. She is not short of breath at rest. PHYSICAL EXAMINATION VITAL SIGNS: Temperature 98.3, pulse 85, respirations 18, and blood pressure 152/110. Oxygen saturation on nasal cannula is 98%. HEENT: Normocephalic and atraumatic NECK: No JVD. CARDIOVASCULAR: Positive S1 and S2. No S3, gallop. LUNGS: Less rhonchi. Less wheezing. EXTREMITIES: No clubbing, cyanosis, or edema. Calves are nontender to palpation. GASTROINTESTINAL: Abdomen is soft, nontender, and nondistended. Bowel sounds are positive. SKIN: No acute rash. NEUROLOGIC EXAM: Limited at the present time. IMPRESSION: 1. Acute bronchitis. 2. Asthma. 3. Hypertension. 4. History of breast cancer. PLAN: The patient appears comfortable this morning. She is not short of breath at rest. She does state that she is feeling much better overall. On physical exam, her bronchospasm is definitely less. In addition, the oxygen saturation on nasal cannula is now 98%. I will continue the current nebulizer treatments and low-dose intravenous steroids (decreased yesterday) for now. The patient remains on antibiotic therapy. There are no temperatures noted. There is no leukocytosis. Cardiology evaluation by Dr. Lyons is noted. Clinical status of the patient has certainly improved - compared to the initial presentation. I will discuss the above with Dr. Blackwell. Simeon Coe MD MTDD
[2016-12-04] MEDS: Acetylcysteine 20% Inhal Soln (4ml) IH SCH ×2 (07:49→19:38)
[2016-12-04] MEDS: Budesonide 0.5 mg/2 ml Inhal Susp UD IH SCH ×2 (07:49→19:38)
[2016-12-04 08:14] LABS: BASO # 0.01 K/mm3 (0.0-2.0); BASO % 0.1 % (0.0-3.0); GRAN # 4.85 (1.4-6.5); GRAN % 66.3 % (50.0-68.0); HEMATOCRIT 38.9 % (36.0-48.0); LYMPH % 27.6 % (22.0-35.0); MEAN CELL VOLUME 91.1 fl (80.0-105.0); MEAN CORPUSCULAR HGB CONC 32.9 g/dl (31.0-37.0); MEAN PLATELET VOLUME 9.7 fl (7.0-11.0); MONO # 0.4 (0.1-0.6); WHITE BLOOD COUNT 7.3 10^3/ul (4.5-11.0)
[2016-12-04] MEDS: Insulin Lispro (humaLOG) MEDIUM Coverage SC SCH ×4 (08:17→23:00)
[2016-12-04 08:27] LABS: ALB/GLOB RATIO 1.4 (1.1-1.8); ALKALINE PHOSPHATASE 58 U/L (38-133); ALT/SGPT 23 U/L (7-56); AST/SGOT 18 U/L (15-39); BILIRUBIN,TOTAL 0.3 mg/dL (0.2-1.3); BLOOD UREA NITROGEN 20 mg/dL (7-21); CALCIUM 8.6 mg/dL (8.4-10.5); CARBON DIOXIDE 23 mmol/L (21-33); CHLORIDE 104 mmol/L (98-107); GFR AFRICAN-AMERICAN > 60; GLUCOSE,RANDOM 259 mg/dL (70-110); POTASSIUM 4.1 mmol/L (3.6-5.0); SODIUM 141 mmol/L (132-148); TOTAL PROTEIN 7.2 g/dL (5.8-8.3)
[2016-12-04] MEDS: Tiotropium 18 mcg Cap For Inhalation IH SCH (10:06)
[2016-12-04] MEDS: MethylPREDNISolone 40 mg Vial IVP SCH ×2 (10:08→23:00)
[2016-12-04] MEDS: Fluticasone Nasal 50 mcg/Spray NS PRN (10:09)
[2016-12-04] MEDS: cefTRIAXone 1 gm 1 GM/100 ML BAG IVPB SCH (10:34)
[2016-12-04] MEDS: LACTOBACILLUS COMBINATION NO 8 PO SCH (11:49)
--- NOTE | 2016-12-04 13:34 | PN ---
DATE: 12/04/2016 CARDIOLOGY FOLLOWUP NOTE SUBJECTIVE: The patient's breathing is somewhat better, but still with persistent wheezing. PHYSICAL EXAMINATION VITAL SIGNS: Blood pressure is 147/99 and heart rate is in the 70s. NECK: Negative JVD. LUNGS: Bilateral expiratory wheezing. HEART: Reveal S1 and S2. EXTREMITIES: Without edema. LABORATORY DATA: Hemoglobin is 12.8. Chemistries; glucose is 259. IMPRESSION 1. Bronchospasm which is better, but still persistent. 2. Dyspnea. 3. Asthma. 4. Hypertension. 5. Diabetes mellitus. PLAN: Given these findings, we have discontinued her beta-blockers. We will continue her losartan for blood pressure control. Julio Cesar Lyons MD
--- NOTE | 2016-12-04 18:52 | CP.PCM.PN ---
<Everett Sanchez - Last Filed: 12/04/16 18:49> Subjective - Date & Time of Evaluation Date of Evaluation: 12/04/16 Time of Evaluation: 06:45 - Subjective Subjective: Pt s/e bedside. Her breathing is much improved, but she still has stridor. Patient is no longer septic. Her HTN has resolved, she is at 138/84. No other acute complaints. Pt denies F/Ch/N/V/D/CP Objective - Vital Signs/Intake and Output Vital Signs (last 24 hours): Temp Pulse Resp BP Pulse Ox 98.3 F 91 H 20 138/84 93 L 12/04/16 16:30 12/04/16 16:30 12/04/16 16:30 12/04/16 16:30 12/04/16 16:30 Intake and Output: 12/04/16 12/04/16 06:59 18:59 Intake Total 900 Balance 900 - Medications Medications: Current Medications Acetaminophen (Tylenol 325mg Tab) 650 mg PO Q6H PRN PRN Reason: Temperature Last Admin: 12/02/16 20:24 Dose: 650 mg Acetylcysteine (Acetylcysteine 20%) 4 ml IH BIDRESP [facility] Last Admin: 12/04/16 07:49 Dose: 4 ml Amlodipine Besylate (Norvasc) 5 mg PO DAILY [facility] Last Admin: 12/04/16 10:07 Dose: 5 mg Azithromycin (Zithromax) 500 mg PO DAILY [facility] PRN Reason: Protocol Last Admin: 12/04/16 10:07 Dose: 500 mg Benzonatate (Tessalon Perles) 100 mg PO TID [facility] Last Admin: 12/04/16 17:58 Dose: 100 mg Budesonide (Pulmicort Respules) 0.5 mg IH [id number] [facility] Last Admin: 12/04/16 07:49 Dose: 0.5 mg Clonidine HCl (Catapres) 0.1 mg PO Q6H PRN PRN Reason: Systolic Blood Pressure Last Admin: 12/04/16 05:54 Dose: 0.1 mg Fluticasone Propionate (Flonase) 1 actuation NS DAILY PRN PRN Reason: NASAL CONGESTION Last Admin: 12/04/16 10:09 Dose: 1 actuation Glimepiride (Amaryl) 2 mg PO DAILY [facility] Last Admin: 12/04/16 10:07 Dose: 2 mg Heparin Sodium (Porcine) (Heparin) 5,000 units SC Q12 [facility] PRN Reason: Protocol Last Admin: 12/04/16 10:08 Dose: Not Given Ceftriaxone Sodium (Rocephin 1 Gram Ivpb) 1 gm in 100 mls @ 100 mls/hr IVPB DAILY [facility] PRN Reason: Protocol Last Admin: 12/04/16 10:34 Dose: 100 mls/hr Insulin Detemir (Levemir) 15 unit SC HS [facility] Last Admin: 12/03/16 21:38 Dose: 15 unit Insulin Human Lispro (Humalog Med) 0 units SC ACHS [facility]UELANG[facility] PRN Reason: Protocol Last Admin: 12/04/16 16:43 Dose: 8 units Letrozole (Femara) 2.5 mg PO DAILY [facility] Last Admin: 12/04/16 10:36 Dose: 2.5 mg Levalbuterol HCl (Xopenex) 0.63 mg IH Q2H PRN PRN Reason: Shortness of Breath Last Admin: 12/02/16 06:50 Dose: 0.63 mg Levalbuterol HCl (Xopenex) 0.63 mg IH [id number] [facility] Last Admin: 12/04/16 13:30 Dose: 0.63 mg Losartan Potassium (Cozaar) 50 mg PO DAILY [facility] Last Admin: 12/04/16 10:35 Dose: 50 mg Methylprednisolone (Solu-Medrol) 40 mg IVP Q12 [facility] Last Admin: 12/04/16 10:08 Dose: 40 mg Non-Formulary Medication (Lactobacillus Combination No.8 [Adult Probiotic]) 1 tab PO DAILY [facility] Last Admin: 12/04/16 11:49 Dose: Not Given Pantoprazole Sodium (Protonix Ec Tab) 40 mg PO 0600 [facility] Promethazine HCl/Dextromethorphan (Phenergan Dm Syrup) 5 ml PO Q6H PRN PRN Reason: Cough Tiotropium [place] (Spiriva) 18 mcg IH DAILY [facility] Last Admin: 12/04/16 10:06 Dose: 18 mcg - Labs Labs: 12/04/16 07:45 12/04/16 07:45 - Additional Findings Additional findings: Phys Exam: VS as below Constitutional: a&o x 4, nad Head and Neck: neck supple, no jvd, trachea midline, carotid midline, no cervical/head mass Eyes: lance, nonicteric sclera, eom intact ENT: auditory acuity grossly intact, throat not congested, no nasal deformity Cardio:+borderline tachycardia - 91 ; regular rhythm, no m/r/g, no carotid bruit , nml s1, s2 Pulm: +stridor; b/l mild wheezes; no Rales, no accessory muscle use. Abd: s/nt/nd, nbs x 4 q, no palpable masses Derm: no rashes, no ulcers, no lesions Extr: +pain limited ROM of L knee; no edema, no cyanosis, no calf tenderness, no lesions, no varicosities Neuro: cn II-XII grossly intact, ue and le 5/5 muscle strength bilaterally, no los ue, le bilaterally and core Assessment and Plan - Assessment and Plan (Free Text) Assessment: This is a 55 yo F with history of asthma, breast cancer s/p b/l mastectomy on chemotherapy, HTN, and HLD who presents with chief complaint of shortness of breath. Admitted to telemetry due to tachycardia Plan: 1) Shortness of breath likely 2/2 Asthma Exacerbation - Satting 95-100% on RA after Duonebs treatments and O2 2L - No history of prior blood clots, but active cancer so at increased risk for clots - no clinical signs of DVT, d-dimer negative, PE unlikely - EKG in ED notable for tachycardia and non-specific t-wave abnormalities, repeat EKG in AM - 1 x 125mg IV solumedrol in ED; reduced to 40mg q12 12/03 - Continue Xopenex, q6 scheduled q2 prn; continue home medications 2) Acute Bronchitis - Promethazine 5 ml PO Q6H PRN - Tiotropium 3) SIRS 2 VS Sepsis - Resolved - Elevated HR 2/2 stress vs breathing treatments, vs tachyarrhythmia vs infection - Fever at 100.4 - resolved - Lactate elevated - CXR was normal, cannot ID another source of infection - Currently hemodynamically stable - Rocephin and Azithromycin started empirically - NS at 100 mls/hr - d/c'd - Continue to monitor 4) HTN - Elevated BP on arrival, SBP > 180, improved since arrival - Restarted home Cozaar - Continue to monitor - Home CoReg Held 5) DM - Continue home oral antihyperglycemics - Sliding scale moderate - Fingersticks ACHS Dispo: Telemetry FEN: Heart-healthy diet Access: Peripheral IV Consults: none Ppx: Protonix for GI, SCDs for DVT (pt has refused lovenox in the past) Case discussed, reviewed, and course of care agreed upon with Dr. Blackwell <Samir Blackwell - Last Filed: 12/20/16 11:52> Objective - Vital Signs/Intake and Output Vital Signs (last 24 hours): Temp Pulse Resp BP Pulse Ox 98.3 F 88 18 145/92 H 96 12/06/16 07:30 12/06/16 07:30 12/06/16 07:30 12/06/16 07:30 12/06/16 07:30 - Labs Labs: 12/06/16 07:00 12/06/16 07:00 Attending/Attestation - Attestation I have personally seen and examined this patient.: Yes I have fully participated in the care of the patient.: Yes I have reviewed all pertinent clinical information, including history, physical exam and plan: Yes Notes (Text): 12/20/16 11:52 Medical record note made by the resident after discussion with my direction and input after the patient was personally seen by me. I have reviewed the chart and agree that the record accurately reflects my personal performance of the history, physical, decision making, and plan for the patient.
[2016-12-04] MEDS: Insulin Detemir 100 units/ml Vial (Levemir) SC SCH (23:00)
[2016-12-05] MEDS: Levalbuterol 0.63 MG/3 ML Inhal Soln UD IH SCH ×4 (01:14→20:09)
[2016-12-05] MEDS: Pantoprazole 40 mg EC Tab PO SCH (06:09)
[2016-12-05 07:13] LABS: BASO # 0.01 K/mm3 (0.0-2.0); BASO % 0.1 % (0.0-3.0); GRAN # 5.26 (1.4-6.5); GRAN % 70.5 % (50.0-68.0); HEMATOCRIT 40.3 % (36.0-48.0); LYMPH # 1.9 (1.2-3.4); LYMPH % 25.1 % (22.0-35.0); MEAN CELL VOLUME 90.4 fl (80.0-105.0); MEAN CORPUSCULAR HEMOGLOBIN 29.4 pg (25.0-35.0); MEAN CORPUSCULAR HGB CONC 32.5 g/dl (31.0-37.0); MEAN PLATELET VOLUME 9.2 fl (7.0-11.0); MONO # 0.3 (0.1-0.6); MONO % 4.3 % (1.0-6.0); RED CELL DISTRIBUTION WIDTH 13.9 % (11.5-14.5); WHITE BLOOD COUNT 7.5 10^3/ul (4.5-11.0)
[2016-12-05 07:28] LABS: ALB/GLOB RATIO 1.4 (1.1-1.8); ALKALINE PHOSPHATASE 62 U/L (38-133); ALT/SGPT 19 U/L (7-56); AST/SGOT 18 U/L (15-39); BILIRUBIN,TOTAL 0.3 mg/dL (0.2-1.3); BLOOD UREA NITROGEN 17 mg/dL (7-21); CALCIUM 8.6 mg/dL (8.4-10.5); CARBON DIOXIDE 23 mmol/L (21-33); CHLORIDE 104 mmol/L (98-107); GFR AFRICAN-AMERICAN > 60; MAGNESIUM 2.2 mg/dL (1.7-2.2); PHOSPHOROUS 4.1 mg/dL (2.5-4.5); POTASSIUM 4.1 mmol/L (3.6-5.0); SODIUM 138 mmol/L (132-148); TOTAL PROTEIN 7.1 g/dL (5.8-8.3)
[2016-12-05 07:59] LABS: GLUCOSE,RANDOM 316 mg/dL (70-110)
[2016-12-05] MEDS: Insulin Lispro (humaLOG) MEDIUM Coverage SC SCH ×4 (08:26→21:48)
[2016-12-05] MEDS: Budesonide 0.5 mg/2 ml Inhal Susp UD IH SCH ×2 (08:45→20:09)
[2016-12-05] MEDS: Acetylcysteine 20% Inhal Soln (4ml) IH SCH ×2 (08:45→20:02)
[2016-12-05] MEDS: Fluticasone Nasal 50 mcg/Spray NS PRN (09:40)
[2016-12-05] MEDS: LACTOBACILLUS COMBINATION NO 8 PO SCH (09:42)
[2016-12-05] MEDS: cefTRIAXone 1 gm 1 GM/100 ML BAG IVPB SCH (09:42)
[2016-12-05] MEDS: Tiotropium 18 mcg Cap For Inhalation IH SCH (09:44)
[2016-12-05] MEDS: MethylPREDNISolone 40 mg Vial IVP SCH ×2 (09:44→21:56)
--- NOTE | 2016-12-05 11:47 | PN ---
SUBJECTIVE: The patient appears very comfortable this morning. She is not short of breath at rest. PHYSICAL EXAMINATION VITAL SIGNS: Temperature 98.3, pulse 81, respirations 18, blood pressure 135/103. Oxygen saturation on room air is 93% to 97%. HEENT: Normocephalic and atraumatic. NECK: No JVD. CARDIOVASCULAR: Positive S1 and S2. No S3 gallop. LUNGS: Much less wheezing. Much less rhonchi. EXTREMITIES: No clubbing, cyanosis, or edema. Calves are nontender to palpation. GASTROINTESTINAL: Abdomen is soft, nontender, nondistended. Bowel sounds are positive. SKIN: No acute rash. NEUROLOGIC EXAM: Limited at the present time. IMPRESSION: 1. Acute bronchitis. 2. Asthma. 3. Hypertension. 4. History of breast cancer. PLAN: The patient appears very comfortable this morning. She is not short of breath at rest. She states that she is feeling much better overall. On physical exam, her bronchospasm continues to resolve. In addition, the oxygen saturation on room air is now 93% to 97%. I will continue the current nebulizer treatments and decrease the intravenous steroids this morning. The patient remains on antibiotic therapy. There are no temperatures noted. There is no leukocytosis. Input by cardiology (Dr. Lyons) is noted. Clinical status of the patient is definitely improved - compared to the initial presentation. I will discuss the above with the attending physician. Simeon Coe MD MTDD
--- NOTE | 2016-12-05 13:16 | CP.PCM.PN ---
Subjective - Date & Time of Evaluation Date of Evaluation: 12/05/16 Time of Evaluation: 06:40 - Subjective Subjective: Pt s/e bedside. Her breathing is much improved, but she still has stridor. Patient is no longer septic. Her HTN is improving . No other acute complaints. Pt denies F/Ch/N/V/D/CP. Pt may be ready for d/c tomorrow. Objective - Vital Signs/Intake and Output Vital Signs (last 24 hours): Temp Pulse Resp BP Pulse Ox 98.8 F 81 20 135/103 H 100 12/05/16 08:00 12/05/16 08:00 12/05/16 08:00 12/05/16 08:00 12/05/16 08:00 Intake and Output: 12/05/16 12/05/16 06:59 18:59 Intake Total 600 Balance 600 - Medications Medications: Current Medications Acetaminophen (Tylenol 325mg Tab) 650 mg PO Q6H PRN PRN Reason: Temperature Last Admin: 12/02/16 20:24 Dose: 650 mg Acetylcysteine (Acetylcysteine 20%) 4 ml IH BIDRESP [facility] Last Admin: 12/05/16 08:45 Dose: 4 ml Amlodipine Besylate (Norvasc) 5 mg PO DAILY [facility] Last Admin: 12/05/16 09:42 Dose: Not Given Azithromycin (Zithromax) 500 mg PO DAILY [facility] PRN Reason: Protocol Last Admin: 12/05/16 09:47 Dose: 500 mg Benzonatate (Tessalon Perles) 100 mg PO TID [facility] Last Admin: 12/05/16 09:46 Dose: 100 mg Budesonide (Pulmicort Respules) 0.5 mg IH [id number] [facility] Last Admin: 12/05/16 08:45 Dose: 0.5 mg Clonidine HCl (Catapres) 0.1 mg PO Q6H PRN PRN Reason: Systolic Blood Pressure Last Admin: 12/04/16 05:54 Dose: 0.1 mg Fluticasone Propionate (Flonase) 1 actuation NS DAILY PRN PRN Reason: NASAL CONGESTION Last Admin: 12/05/16 09:40 Dose: 1 actuation Glimepiride (Amaryl) 2 mg PO DAILY [facility] Last Admin: 12/05/16 09:33 Dose: 2 mg Heparin Sodium (Porcine) (Heparin) 5,000 units SC Q12 [facility] PRN Reason: Protocol Last Admin: 12/05/16 09:41 Dose: Not Given Ceftriaxone Sodium (Rocephin 1 Gram Ivpb) 1 gm in 100 mls @ 100 mls/hr IVPB DAILY [facility] PRN Reason: Protocol Last Admin: 12/05/16 09:42 Dose: 100 mls/hr Insulin Detemir (Levemir) 15 unit SC HS [facility] Last Admin: 12/04/16 23:00 Dose: 15 unit Insulin Human Lispro (Humalog Med) 0 units SC ACHS [facility]UELANGEL PRN Reason: Protocol Last Admin: 12/05/16 08:26 Dose: 7 units Letrozole (Femara) 2.5 mg PO DAILY [facility] Last Admin: 12/05/16 09:58 Dose: 2.5 mg Levalbuterol HCl (Xopenex) 0.63 mg IH Q2H PRN PRN Reason: Shortness of Breath Last Admin: 12/02/16 06:50 Dose: 0.63 mg Levalbuterol HCl (Xopenex) 0.63 mg IH [id number] [facility] Last Admin: 12/05/16 08:45 Dose: 0.63 mg Losartan Potassium (Cozaar) 50 mg PO DAILY [facility] Last Admin: 12/05/16 09:33 Dose: Not Given Methylprednisolone (Solu-Medrol) 30 mg IVP Q12 [facility] Last Admin: 12/05/16 09:44 Dose: 30 mg Non-Formulary Medication (Lactobacillus Combination No.8 [Adult Probiotic]) 1 tab PO DAILY [facility] Last Admin: 12/05/16 09:42 Dose: Not Given Pantoprazole Sodium (Protonix Ec Tab) 40 mg PO 0600 [facility] Last Admin: 12/05/16 06:09 Dose: Not Given Promethazine HCl/Dextromethorphan (Phenergan Dm Syrup) 5 ml PO Q6H PRN PRN Reason: Cough Tiotropium [place] (Spiriva) 18 mcg IH DAILY [facility] Last Admin: 12/05/16 09:44 Dose: 18 mcg - Labs Labs: 12/05/16 06:30 12/05/16 06:30 - Additional Findings Additional findings: Phys Exam: VS as below Constitutional: a&o x 4, nad Head and Neck: neck supple, no jvd, trachea midline, carotid midline, no cervical/head mass Eyes: lance, nonicteric sclera, eom intact ENT: auditory acuity grossly intact, throat not congested, no nasal deformity Cardio:+borderline tachycardia - 91 ; regular rhythm, no m/r/g, no carotid bruit , nml s1, s2 Pulm: +stridor; b/l mild wheezes; no Rales, no accessory muscle use. Abd: s/nt/nd, nbs x 4 q, no palpable masses Derm: no rashes, no ulcers, no lesions Extr: +pain limited ROM of L knee; no edema, no cyanosis, no calf tenderness, no lesions, no varicosities Neuro: cn II-XII grossly intact, ue and le 5/5 muscle strength bilaterally, no los ue, le bilaterally and core Assessment and Plan - Assessment and Plan (Free Text) Assessment: This is a 55 yo F with history of asthma, breast cancer s/p b/l mastectomy on chemotherapy, HTN, and HLD who presents with chief complaint of shortness of breath. Admitted to telemetry due to tachycardia Plan: 1) Shortness of breath likely 2/2 Asthma Exacerbation - Satting 95-100% on RA after Duonebs treatments and O2 2L - No history of prior blood clots, but active cancer so at increased risk for clots - no clinical signs of DVT, d-dimer negative, PE unlikely - EKG in ED notable for tachycardia and non-specific t-wave abnormalities, repeat EKG in AM - 1 x 125mg IV solumedrol in ED; reduced to 30mg q12 12/05 - Continue Xopenex, q6 scheduled q2 prn; continue home medications 2) Acute Bronchitis - Promethazine 5 ml PO Q6H PRN - Tiotropium 3) SIRS 2 VS Sepsis - Resolved - Elevated HR 2/2 stress vs breathing treatments, vs tachyarrhythmia vs infection - Fever at 100.4 - resolved - Lactate elevated - CXR was normal, cannot ID another source of infection - Currently hemodynamically stable - Rocephin and Azithromycin started empirically - NS at 100 mls/hr - d/c'd - Continue to monitor 4) HTN - Elevated BP on arrival, SBP > 180, improved since arrival - Restarted home Cozaar - Continue to monitor - Home CoReg Held 5) DM - Continue home oral antihyperglycemics - Sliding scale moderate - Fingersticks ACHS Dispo: Possible d/c tomorrow FEN: Heart-healthy diet Access: Peripheral IV Ppx: Protonix for GI, SCDs for DVT (pt has refused lovenox in the past) Case discussed, reviewed, and course of care agreed upon with Dr. Padilla
[2016-12-05] MEDS: Insulin Detemir 100 units/ml Vial (Levemir) SC SCH (21:53)
[2016-12-06] MEDS: Levalbuterol 0.63 MG/3 ML Inhal Soln UD IH SCH ×3 (01:26→13:27)
[2016-12-06] MEDS: Budesonide 0.5 mg/2 ml Inhal Susp UD IH SCH (07:21)
[2016-12-06] MEDS: Acetylcysteine 20% Inhal Soln (4ml) IH SCH (07:21)
[2016-12-06 07:37] LABS: GRAN # 5.99 (1.4-6.5); GRAN % 68.8 % (50.0-68.0); HEMATOCRIT 39.6 % (36.0-48.0); LYMPH # 2.2 (1.2-3.4); LYMPH % 25.5 % (22.0-35.0); MEAN CELL VOLUME 89.6 fl (80.0-105.0); MEAN CORPUSCULAR HEMOGLOBIN 29.4 pg (25.0-35.0); MEAN CORPUSCULAR HGB CONC 32.8 g/dl (31.0-37.0); MEAN PLATELET VOLUME 9.3 fl (7.0-11.0); MONO # 0.5 (0.1-0.6); MONO % 5.7 % (1.0-6.0); RED CELL DISTRIBUTION WIDTH 13.8 % (11.5-14.5); WHITE BLOOD COUNT 8.7 10^3/ul (4.5-11.0)
--- NOTE | 2016-12-06 07:41 | PN ---
DATE: 12/06/2016 PULMONARY NOTE SUBJECTIVE: The patient appears very comfortable this morning. She is not short of breath at rest. PHYSICAL EXAMINATION: VITAL SIGNS: Temperature 97.9, pulse 83, respirations 18, blood pressure 139/96. Oxygen saturation on room air is 97%. HEENT: Normocephalic and atraumatic. NECK: No JVD. CARDIOVASCULAR: Positive S1 and S2. No S3. LUNGS: Very minimal rhonchi and wheezing remain - substantially reduced overall. EXTREMITIES: No clubbing, cyanosis, or edema. Calves are nontender to palpation. GASTROINTESTINAL: Abdomen is soft, nontender, nondistended. Bowel sounds are positive. SKIN: No acute rash. NEUROLOGIC EXAM: Limited at the present time. IMPRESSION: 1. Acute bronchitis. 2. Asthma. 3. Hypertension. 4. History of breast cancer. PLAN: The patient appears very comfortable this morning. She is not short of breath at rest. She denies dyspnea on exertion. She states she walked a lot around the halls yesterday. She states she is feeling much, much better overall. On physical exam, her bronchospasm continues to resolve. In addition, the alveolar-arterial gradient also continues to resolve. Oxygen saturation on room air is now 97% to 100%. Again, the patient states that she is feeling much, much better overall, and is asking to go home. I will continue with the current nebulizer treatments and change to oral steroids this morning. The patient remains on antibiotic therapy. There are no temperatures noted. There is no leukocytosis. Repeat a.m. labs are pending. Clinical status of the patient is significantly improved overall. I will discuss the above with the attending physician. Simeon Coe MD MTDD
[2016-12-06 07:50] LABS: ALB/GLOB RATIO 1.4 (1.1-1.8); ALKALINE PHOSPHATASE 61 U/L (38-133); ALT/SGPT 22 U/L (7-56); AST/SGOT 18 U/L (15-39); BILIRUBIN,TOTAL 0.3 mg/dL (0.2-1.3); BLOOD UREA NITROGEN 19 mg/dL (7-21); CALCIUM 8.8 mg/dL (8.4-10.5); CARBON DIOXIDE 24 mmol/L (21-33); CHLORIDE 102 mmol/L (98-107); GFR AFRICAN-AMERICAN > 60; GLUCOSE,RANDOM 258 mg/dL (70-110); MAGNESIUM 2.2 mg/dL (1.7-2.2); POTASSIUM 4.1 mmol/L (3.6-5.0); SODIUM 138 mmol/L (132-148); TOTAL PROTEIN 6.9 g/dL (5.8-8.3)
[2016-12-06] MEDS: Insulin Lispro (humaLOG) MEDIUM Coverage SC SCH (08:29)
[2016-12-06] MEDS: Pantoprazole 40 mg EC Tab PO SCH (09:26)
[2016-12-06 10:04] VITALS: BP 145/92; PULSE 88; RESP 18; TEMP 98.3; O2SAT 96
--- NOTE | 2016-12-06 22:33 | CP.PCM.DIS ---
<Everett Sanchez - Last Filed: 12/15/16 16:43> Provider - Provider Date of Admission: 11/30/16 11:51 Attending physician: Samir Blackwell MD Primary care physician: Samir Blackwell MD Consults: Dr. Lyons - Cardio Dr. Werner - Pulm Time Spent in preparation of Discharge (in minutes): 45 Hospital Course - Lab Results Lab Results: Micro Results 11/30/16 19:10 Sputum Gram Stain - Final 11/30/16 19:10 Sputum Sputum Culture - Final NORMAL ORAL [place] 11/30/16 12:18 Urine Urine Culture - Final MULTIPLE SPECIES. SUGGEST REPEAT SPECIMEN. Most Recent Lab Values WBC 8.7 10^3/ul (4.5-11.0) 12/06/16 07:00 RBC 4.42 10^6/uL (3.5-6.1) 12/06/16 07:00 Hgb 13.0 g/dL (12.0-16.0) 12/06/16 07:00 Hct 39.6 % (36.0-48.0) 12/06/16 07:00 MCV 89.6 fl (80.0-105.0) 12/06/16 07:00 MCH 29.4 pg (25.0-35.0) 12/06/16 07:00 MCHC 32.8 g/dl (31.0-37.0) 12/06/16 07:00 RDW 13.8 % (11.5-14.5) 12/06/16 07:00 Plt Count 338 10^3/uL (120.0-450.0) 12/06/16 07:00 MPV 9.3 fl (7.0-11.0) 12/06/16 07:00 Gran % 68.8 % (50.0-68.0) H 12/06/16 07:00 Lymph % (Auto) 25.5 % (22.0-35.0) 12/06/16 07:00 [place] % (Auto) 5.7 % (1.0-6.0) 12/06/16 07:00 Eos % (Auto) 0.0 % (1.5-5.0) L 12/06/16 07:00 Baso % (Auto) 0.0 % (0.0-3.0) 12/06/16 07:00 Gran # 5.99 (1.4-6.5) 12/06/16 07:00 Lymph # 2.2 (1.2-3.4) 12/06/16 07:00 [place] # 0.5 (0.1-0.6) 12/06/16 07:00 Eos # 0.0 (0.0-0.7) 12/06/16 07:00 Baso # 0.00 K/mm3 (0.0-2.0) 12/06/16 07:00 D-Dimer, Quantitative 0.35 mg/L FEU (0-0.50) 11/30/16 10:06 pCO2 34 mm/Hg (35-45) L 11/30/16 12:50 pO2 109 mm/Hg (30-55) H 11/30/16 13:10 HCO3 22.6 mmol/L (21-28) 11/30/16 12:50 ABG pH 7.43 (7.35-7.45) 11/30/16 12:50 ABG Total CO2 23.6 mmol.L (22-28) 11/30/16 12:50 ABG O2 Saturation 97.0 % (95-98) 11/30/16 12:50 ABG Base Excess -1.2 mmol/L (-2.0-3.0) 11/30/16 12:50 ABG Potassium 3.2 mmol/L (3.6-5.2) L 11/30/16 12:50 VBG pH 7.37 (7.32-7.43) 11/30/16 13:10 VBG pCO2 41.0 (40-60) 11/30/16 13:10 VBG HCO3 23.7 mmol/l (21-28) 11/30/16 13:10 VBG Total CO2 25.0 mmol.L (22-28) 11/30/16 13:10 VBG O2 Sat (Calc) 98.6 % (40-65) H 11/30/16 13:10 VBG Base Excess -1.5 mmol/L (0.0-2.0) L 11/30/16 13:10 VBG Potassium 3.4 mmol/L (3.6-5.2) L 11/30/16 13:10 Sodium 142.0 mmol/L (132-148) 11/30/16 13:10 Chloride 106.0 mmol/L (98-107) 11/30/16 13:10 Glucose 278 mg/dl (65-105) H 11/30/16 13:10 Lactate 3.4 mmol/L (0.7-2.1) H 11/30/16 13:10 FiO2 21.0 % 11/30/16 13:10 Sodium 138 mmol/L (132-148) 12/06/16 07:00 Potassium 4.1 mmol/L (3.6-5.0) 12/06/16 07:00 Chloride 102 mmol/L (98-107) 12/06/16 07:00 Carbon Dioxide 24 mmol/L (21-33) 12/06/16 07:00 Anion Gap 16 (10-20) 12/06/16 07:00 BUN 19 mg/dL (7-21) 12/06/16 07:00 Creatinine 0.7 mg/dL (0.5-1.4) 12/06/16 07:00 Est GFR ( Amer) > 60 12/06/16 07:00 Est GFR (Non-Af Amer) > 60 12/06/16 07:00 POC Glucose (mg/dL) 304 mg/dL (65-110) H 12/06/16 11:26 Random Glucose 258 mg/dL (70-110) H 12/06/16 07:00 Hemoglobin A1c 9.1 % (4.2-6.5) H 12/01/16 07:30 Calcium 8.8 mg/dL (8.4-10.5) 12/06/16 07:00 Phosphorus 4.0 mg/dL (2.5-4.5) 12/06/16 07:00 Magnesium 2.2 mg/dL (1.7-2.2) 12/06/16 07:00 Total Bilirubin 0.3 mg/dL (0.2-1.3) 12/06/16 07:00 AST 18 U/L (15-39) 12/06/16 07:00 ALT 22 U/L (7-56) 12/06/16 07:00 Alkaline Phosphatase 61 U/L (38-133) 12/06/16 07:00 Lactate Dehydrogenase 586 U/L (333-699) 11/30/16 10:06 Total Creatine Kinase 109 U/L (35-230) 11/30/16 10:06 Troponin I < 0.01 ng/mL 11/30/16 10:06 NT-Pro-B Natriuret Pep 97.6 pg/mL (0-450) 11/30/16 10:06 Total Protein 6.9 g/dL (5.8-8.3) 12/06/16 07:00 Albumin 4.0 g/dL (3.0-4.8) 12/06/16 07:00 Globulin 2.9 gm/dL 12/06/16 07:00 Albumin/Globulin Ratio 1.4 (1.1-1.8) 12/06/16 07:00 Triglycerides 93 mg/dL (35-160) 12/01/16 07:15 Cholesterol 222 mg/dL (130-200) H 12/01/16 07:15 LDL Cholesterol Direct 99 mg/dL (0-129) 12/01/16 07:15 HDL Cholesterol 91 mg/dL (29-60) H 12/01/16 07:15 Procalcitonin < 0.05 NG/ML (0.19-0.49) L 11/30/16 12:18 Arterial Blood Potassium 3.2 mmol/L (3.6-5.2) L 11/30/16 12:50 Venous Blood Potassium 3.4 mmol/L (3.6-5.2) L 11/30/16 13:10 Urine Color Light yellow (YELLOW) 11/30/16 12:18 Urine Appearance Clear (CLEAR) 11/30/16 12:18 Urine pH 7.0 (4.7-8.0) 11/30/16 12:18 Ur Specific [place] 1.015 (1.005-1.035) 11/30/16 12:18 Urine Protein Trace mg/dL (<30 mg/dL) H 11/30/16 12:18 Urine Glucose (UA) 500 mg/dL (NEGATIVE) H 11/30/16 12:18 Urine Ketones Negative mg/dL (NEGATIVE) 11/30/16 12:18 Urine Blood Small (NEGATIVE) H 11/30/16 12:18 Urine Nitrate Negative (NEGATIVE) 11/30/16 12:18 Urine Bilirubin Negative (NEGATIVE) 11/30/16 12:18 Urine Urobilinogen 0.2 E.U./dL (<1 E.U./dL) 11/30/16 12:18 Ur Leukocyte Esterase Negative Rosa/uL (NEGATIVE) 11/30/16 12:18 Urine RBC 2 - 5 /hpf (0-2) 11/30/16 12:18 Urine WBC 0 - 2 /hpf (0-6) 11/30/16 12:18 Ur Epithelial Cells 4 - 5 /hpf (0-5) 11/30/16 12:18 Urine Bacteria Few (NEG) 11/30/16 12:18 Coarse Granular Casts Trace /hpf (0-2) H 11/30/16 12:18 - Hospital Course Hospital Course: HPI on day of admission: CC: SOB 56 AA F w PMHx significant for asthma, breast cancer s/p b/l mastectomy on chemotherapy, HTN, and HLD presented with SOB of 2 days duration. Patient states that she took her brovana, albuterol, and two nebulizer treatments at home to no avail. Patient states that her current symptoms are consistent with past asthma attacks. Patient denies any sick contacts, any recent fatigue, f/ch /n/v/d/cp, nor any recent illness. She does state that she recently started having post nasal drip yesterday as well as a cough. Hospital course: Ms. Wallace had a code sepsis called on the day of admission, but when she was reassessed the SIRS symptoms had resolved. The following imaging studies were performed: CXR: No active disease. Throughout her course at the hospital, Ms. Wallace's respiratory symptoms continued to improve. She was seen by Pulmonology, ID, and the primary team. On the day of discharge, her symptoms had completely resolved, and she was deemed stable for discharge Discharge Exam - Head Exam Head Exam: ATRAUMATIC - Additional Findings Additional findings: VS as below Constitutional: a&o x 4, nad Head and Neck: neck supple, no jvd, trachea midline, carotid midline, no cervical/head mass Eyes: lance, nonicteric sclera, eom intact ENT: auditory acuity grossly intact, throat not congested, no nasal deformity Cardio:+borderline tachycardia resolved ; regular rhythm, no m/r/g, no carotid bruit, nml s1, s2 Pulm: +stridor resolved; b/l mild wheezes, resolved from admission; no Rales, no accessory muscle use. Abd: s/nt/nd, nbs x 4 q, no palpable masses Derm: no rashes, no ulcers, no lesions Extr: +pain limited ROM of L knee; no edema, no cyanosis, no calf tenderness, no lesions, no varicosities Neuro: cn II-XII grossly intact, ue and le 5/5 muscle strength bilaterally, no los ue, le bilaterally and core Discharge Plan - Discharge Medications Prescriptions: Cefdinir [Omnicef] 300 mg PO DAILY #9 cap Desloratadine [Clarinex] 5 mg PO DAILY #30 tablet methylPREDNISolone [Medrol] 4 mg PO DAILY #35 tab Tiotropium [place] Inhaler [Spiriva Inhalation Handihaler Device] 1 inhaler INH Q6H #2 inhaler - Follow Up Plan Condition: GUARDED Disposition: HOME/ ROUTINE Instructions: Asthma (DC), Asthma (GEN), Complications of Infection (GEN) Additional Instructions: 1.) Please take your new Rx's as prescribed - Steroids: PLEASE TAPER THEM I INSTRUCTED - ABX: For 9 more days 2.) Should your symptoms worsen, please return to the ED 3.) We discussed your new insulin regimen - 14U of T[place] insulin Referrals: Samir Blackwell MD [Primary Care Provider] - <Samir Blackwell - Last Filed: 12/20/16 11:53> Provider - Provider Date of Admission: 11/30/16 11:51 Attending physician: Samir Blackwell MD Primary care physician: Samir Blackwell MD Hospital Course - Lab Results Lab Results: Micro Results 11/30/16 19:10 Sputum Gram Stain - Final 11/30/16 19:10 Sputum Sputum Culture - Final NORMAL ORAL [place] 11/30/16 12:18 Urine Urine Culture - Final MULTIPLE SPECIES. SUGGEST REPEAT SPECIMEN. Most Recent Lab Values WBC 8.7 10^3/ul (4.5-11.0) 12/06/16 07:00 RBC 4.42 10^6/uL (3.5-6.1) 12/06/16 07:00 Hgb 13.0 g/dL (12.0-16.0) 12/06/16 07:00 Hct 39.6 % (36.0-48.0) 12/06/16 07:00 MCV 89.6 fl (80.0-105.0) 12/06/16 07:00 MCH 29.4 pg (25.0-35.0) 12/06/16 07:00 MCHC 32.8 g/dl (31.0-37.0) 12/06/16 07:00 RDW 13.8 % (11.5-14.5) 12/06/16 07:00 Plt Count 338 10^3/uL (120.0-450.0) 12/06/16 07:00 MPV 9.3 fl (7.0-11.0) 12/06/16 07:00 Gran % 68.8 % (50.0-68.0) H 12/06/16 07:00 Lymph % (Auto) 25.5 % (22.0-35.0) 12/06/16 07:00 [place] % (Auto) 5.7 % (1.0-6.0) 12/06/16 07:00 Eos % (Auto) 0.0 % (1.5-5.0) L 12/06/16 07:00 Baso % (Auto) 0.0 % (0.0-3.0) 12/06/16 07:00 Gran # 5.99 (1.4-6.5) 12/06/16 07:00 Lymph # 2.2 (1.2-3.4) 12/06/16 07:00 [place] # 0.5 (0.1-0.6) 12/06/16 07:00 Eos # 0.0 (0.0-0.7) 12/06/16 07:00 Baso # 0.00 K/mm3 (0.0-2.0) 12/06/16 07:00 D-Dimer, Quantitative 0.35 mg/L FEU (0-0.50) 11/30/16 10:06 pCO2 34 mm/Hg (35-45) L 11/30/16 12:50 pO2 109 mm/Hg (30-55) H 11/30/16 13:10 HCO3 22.6 mmol/L (21-28) 11/30/16 12:50 ABG pH 7.43 (7.35-7.45) 11/30/16 12:50 ABG Total CO2 23.6 mmol.L (22-28) 11/30/16 12:50 ABG O2 Saturation 97.0 % (95-98) 11/30/16 12:50 ABG Base Excess -1.2 mmol/L (-2.0-3.0) 11/30/16 12:50 ABG Potassium 3.2 mmol/L (3.6-5.2) L 11/30/16 12:50 VBG pH 7.37 (7.32-7.43) 11/30/16 13:10 VBG pCO2 41.0 (40-60) 11/30/16 13:10 VBG HCO3 23.7 mmol/l (21-28) 11/30/16 13:10 VBG Total CO2 25.0 mmol.L (22-28) 11/30/16 13:10 VBG O2 Sat (Calc) 98.6 % (40-65) H 11/30/16 13:10 VBG Base Excess -1.5 mmol/L (0.0-2.0) L 11/30/16 13:10 VBG Potassium 3.4 mmol/L (3.6-5.2) L 11/30/16 13:10 Sodium 142.0 mmol/L (132-148) 11/30/16 13:10 Chloride 106.0 mmol/L (98-107) 11/30/16 13:10 Glucose 278 mg/dl (65-105) H 11/30/16 13:10 Lactate 3.4 mmol/L (0.7-2.1) H 11/30/16 13:10 FiO2 21.0 % 11/30/16 13:10 Sodium 138 mmol/L (132-148) 12/06/16 07:00 Potassium 4.1 mmol/L (3.6-5.0) 12/06/16 07:00 Chloride 102 mmol/L (98-107) 12/06/16 07:00 Carbon Dioxide 24 mmol/L (21-33) 12/06/16 07:00 Anion Gap 16 (10-20) 12/06/16 07:00 BUN 19 mg/dL (7-21) 12/06/16 07:00 Creatinine 0.7 mg/dL (0.5-1.4) 12/06/16 07:00 Est GFR ( Amer) > 60 12/06/16 07:00 Est GFR (Non-Af Amer) > 60 12/06/16 07:00 POC Glucose (mg/dL) 304 mg/dL (65-110) H 12/06/16 11:26 Random Glucose 258 mg/dL (70-110) H 12/06/16 07:00 Hemoglobin A1c 9.1 % (4.2-6.5) H 12/01/16 07:30 Calcium 8.8 mg/dL (8.4-10.5) 12/06/16 07:00 Phosphorus 4.0 mg/dL (2.5-4.5) 12/06/16 07:00 Magnesium 2.2 mg/dL (1.7-2.2) 12/06/16 07:00 Total Bilirubin 0.3 mg/dL (0.2-1.3) 12/06/16 07:00 AST 18 U/L (15-39) 12/06/16 07:00 ALT 22 U/L (7-56) 12/06/16 07:00 Alkaline Phosphatase 61 U/L (38-133) 12/06/16 07:00 Lactate Dehydrogenase 586 U/L (333-699) 11/30/16 10:06 Total Creatine Kinase 109 U/L (35-230) 11/30/16 10:06 Troponin I < 0.01 ng/mL 11/30/16 10:06 NT-Pro-B Natriuret Pep 97.6 pg/mL (0-450) 11/30/16 10:06 Total Protein 6.9 g/dL (5.8-8.3) 12/06/16 07:00 Albumin 4.0 g/dL (3.0-4.8) 12/06/16 07:00 Globulin 2.9 gm/dL 12/06/16 07:00 Albumin/Globulin Ratio 1.4 (1.1-1.8) 12/06/16 07:00 Triglycerides 93 mg/dL (35-160) 12/01/16 07:15 Cholesterol 222 mg/dL (130-200) H 12/01/16 07:15 LDL Cholesterol Direct 99 mg/dL (0-129) 12/01/16 07:15 HDL Cholesterol 91 mg/dL (29-60) H 12/01/16 07:15 Procalcitonin < 0.05 NG/ML (0.19-0.49) L 11/30/16 12:18 Arterial Blood Potassium 3.2 mmol/L (3.6-5.2) L 11/30/16 12:50 Venous Blood Potassium 3.4 mmol/L (3.6-5.2) L 11/30/16 13:10 Urine Color Light yellow (YELLOW) 11/30/16 12:18 Urine Appearance Clear (CLEAR) 11/30/16 12:18 Urine pH 7.0 (4.7-8.0) 11/30/16 12:18 Ur Specific [place] 1.015 (1.005-1.035) 11/30/16 12:18 Urine Protein Trace mg/dL (<30 mg/dL) H 11/30/16 12:18 Urine Glucose (UA) 500 mg/dL (NEGATIVE) H 11/30/16 12:18 Urine Ketones Negative mg/dL (NEGATIVE) 11/30/16 12:18 Urine Blood Small (NEGATIVE) H 11/30/16 12:18 Urine Nitrate Negative (NEGATIVE) 11/30/16 12:18 Urine Bilirubin Negative (NEGATIVE) 11/30/16 12:18 Urine Urobilinogen 0.2 E.U./dL (<1 E.U./dL) 11/30/16 12:18 Ur Leukocyte Esterase Negative Rosa/uL (NEGATIVE) 11/30/16 12:18 Urine RBC 2 - 5 /hpf (0-2) 11/30/16 12:18 Urine WBC 0 - 2 /hpf (0-6) 11/30/16 12:18 Ur Epithelial Cells 4 - 5 /hpf (0-5) 11/30/16 12:18 Urine Bacteria Few (NEG) 11/30/16 12:18 Coarse Granular Casts Trace /hpf (0-2) H 11/30/16 12:18 Attending/Attestation - Attestation I have personally seen and examined this patient.: Yes I have fully participated in the care of the patient.: Yes I have reviewed all pertinent clinical information, including history, physical exam and plan: Yes Notes (Text): 12/20/16 11:53 Medical record note made by the resident after discussion with my direction and input after the patient was personally seen by me. I have reviewed the chart and agree that the record accurately reflects my personal performance of the history, physical, decision making, and plan for the patient.
== END 2016-12-06 15:45 | disposition home or self-care (01) | DRG 191 ==
LOC: ED 09:38 → ERH 11:51 → 2RSO 13:53 → 5RSO 12-03 16:35
PROVIDERS: ADMIT Internal Medicine; ATTEND Internal Medicine
PROC: 3E0F7GC Introduction of Other Therapeutic Substance into Respiratory Tract, Via Natural or Artificial Opening (ICD-10-PCS; principal; 2016-11-30)
DX: J44.0 Chronic obstructive pulmonary disease with (acute) lower respiratory infection (principal); J45.901 Unspecified asthma with (acute) exacerbation; C50.919 Malignant neoplasm of unspecified site of unspecified female breast; E11.65 Type 2 diabetes mellitus with hyperglycemia; J20.9 Acute bronchitis, unspecified; I10 Essential (primary) hypertension; E78.5 Hyperlipidemia, unspecified; E66.9 Obesity, unspecified; R00.0 Tachycardia, unspecified; R09.02 Hypoxemia; Z90.13 Acquired absence of bilateral breasts and nipples; Z95.1 Presence of aortocoronary bypass graft

== ENCOUNTER 2017-05-24 11:00 | Emergency (ER) | payer BC, OTHER ==
[2017-05-24 11:01] VITALS: BMI 34.8
--- NOTE | 2017-05-24 12:13 | ED PDOC ---
Arrival/HPI - General Chief Complaint: Abdominal Pain Time Seen by Provider: 05/24/17 11:22 Historian: Patient - History of Present Illness Narrative History of Present Illness (Text): 05/24/17 12:42 A 56 year old female, whose past medical history includes asthma, sciatica and double mastectomy (2000), presents to the emergency department complaining of left sided rib pain for the past four days. Patient reports pain radiates under left breast. Denies having these symptoms in the past. Reports constant pain with movement and turning, unsure how pain developed. Patient notes pain is affecting her breathing. Reports to taking Motrin with no relief. Patient denies any rash, appetite changes, urinary symptoms, back pain, neck pain, shoulder pain or any other complaints at this time. Park Activities Coordinator: Dr. Coe Time/Duration: < week Symptom Onset: Sudden Symptom Course: Unchanged Activities at Onset: Rest Context: Home Past Medical History - Provider Review Nursing Documentation Reviewed: Yes - Infectious Disease Hx of Infectious Diseases: None - Tetanus Immunization Tetanus Immunization: Unknown - Reproductive Menopause: Yes - Cardiac Hx Cardiac Disorders: Yes Hx Hypertension: Yes - Pulmonary Hx Respiratory Disorders: Yes Hx Asthma: Yes - Neurological Hx Neurological Disorder: No - HEENT Hx HEENT Disorder: Yes (WEARS RX GLASSES) - Renal Hx Renal Disorder: No - Endocrine/Metabolic Hx Endocrine Disorders: Yes Hx Diabetes Mellitus Type 2: Yes - Hematological/Oncological Hx Blood Disorders: Yes Hx Cancer: Yes (breast to bone (14 Years)) Hx Chemotherapy: Yes Other/Comment: bilat mastectomy 2007/ left arm alert - Integumentary Hx Dermatological Disorder: No - Musculoskeletal/Rheumatological Hx Musculoskeletal Disorders: Yes (LEFT TORN MENISCUS) Hx Arthritis: Yes Hx Falls: No - Gastrointestinal Hx Gastrointestinal Disorders: No - Genitourinary/Gynecological Hx Genitourinary Disorders: No - Psychiatric Hx Psychophysiologic Disorder: No Hx Substance Use: No - Surgical History Hx Mastectomy: Yes (bilateral 2006) - Anesthesia Hx Anesthesia: Yes Hx Anesthesia Reactions: No Hx Malignant Hyperthermia: No - Suicidal Assessment Feels Threatened In Home Enviroment: No Family/Social History - Physician Review Nursing Documentation Reviewed: Yes Family/Social History: No Known Family HX Smoking Status: Never Smoked Hx Alcohol Use: No Hx Substance Use: No Hx Substance Use Treatment: No Allergies/Home Meds Allergies/Adverse Reactions: Allergies theophylline Allergy (Verified 05/24/17 11:23) ITCHING Home Medications: Home Meds Medication Instructions Recorded Confirmed Albuterol Sulfate [Proair Hfa] 2 puff IH PRN PRN 11/30/16 05/24/17 Carvedilol [Coreg] 3.125 mg PO DAILY 11/30/16 05/24/17 Denosumab [Xgeva] 120 mg SC Q30D 11/30/16 Glimepiride 2 mg PO DAILY 11/30/16 05/24/17 Insulin Lispro [humALOG] 7 units SQ TID PRN 11/30/16 05/24/17 Lactobacillus Combination No.8 1 tab PO DAILY 11/30/16 05/24/17 [Adult Probiotic] Letrozole 2.5 mg PO DAILY 11/30/16 05/24/17 Palbociclib [Ibrance] 75 mg PO DAILY 11/30/16 05/24/17 Review of Systems - Physician Review All systems were reviewed & negative as marked: Yes - Review of Systems Gastrointestinal: absent: Appetite Changes Genitourinary Female: absent: Dysuria Musculoskeletal: Other (left sided rib pain, no shoulder pain). absent: Back Pain, Neck Pain Physical Exam - Physical Exam Narrative Physical Exam (Text): 05/24/17 12:12 Head: Atraumatic. Normocephalic. Eyes: PERRL. EOMI. Conjunctivae are not pale. ENT: Mucous membranes are moist and intact. Oropharynx is clear and symmetric. Neck: Supple. Full ROM. No JVD. No lymphadenopathy. Cardiovascular: Regular rate. Regular rhythm. No murmurs, rubs, or gallops. Distal pulses are 2+ and symmetric. Pulmonary/Chest: No evidence of respiratory distress. Clear to auscultation bilaterally. No wheezing, rales or rhonchi. Palpable diffuse left anterior chest pain, extending across lateral rib cage Breast: No obvious erythema, edema, lesions. Abdominal: Left upper quadrant abdominal discomfort on palpation. No rebound, guarding, or rigidity. No organomegaly. Good bowel sounds. Back: No CVA tenderness. Extremities: No edema. No cyanosis. No clubbing. Full range of motion in all extremities. No calf tenderness. Skin: Skin is warm and dry. No petechiae. No purpura. Neurological: Alert, awake, and oriented to person, place, time, and situation. Normal speech. Psychiatric: Good eye contact. Normal interaction, affect, and behavior. Vital Signs Reviewed: Yes Vital Signs Temp Pulse Resp BP Pulse Ox 05/24/17 15:47 97.8 F 88 20 162/100 H 96 05/24/17 11:19 98.8 F 80 18 156/102 H 100 05/24/17 11:01 98.8 F 80 18 156/102 H 100 Temperature: Afebrile Blood Pressure: Hypertensive Pulse: Regular Respiratory Rate: Normal Appearance: Positive for: Well-Appearing, Non-Toxic, Comfortable Pain Distress: None Mental Status: Positive for: Alert and Oriented X 3 Medical Decision Making ED Course and Treatment: 05/24/17 12:12 Impression: A 56 year old female with left sided rib pain. Differential Diagnosis included but are not limited to: muscle strain vs. rib contusion vs. kidney stones Plan: -- CT abd/pelvis -- labs -- Urinalysis -- Ultram -- Radiology LS spine, dorsal spine -- Reassess and disposition Prior Visits: Notes and results from previous visits were reviewed. Patient was last seen in the emergency department on 11/30/16 for evaluation of shortness of breath, cough and wheezing. Progress Notes: Creator : Richard Harper MD 05/24/17 13:37 CT Abdomen and Pelvis without intravenous contrast IMPRESSION: No definitive acute abdominal or pelvic pathology grossly evident on this unenhanced examination which is consequently limited due to lack contrast agents. Extensive left colonic and mid to distal transverse colonic diverticular changes are noted without diverticulitis once again. No obstructive uropathy or radiodense urolithiasis bilaterally once again. A mild increase in multifocal thoracolumbar sacral and remaining pelvic sclerotic bony lesions are identified in the interval in this patient with a known history of breast cancer. 05/24/17 15:36 Pain appears to be palpable and more superficial. There's no vesicular rash noted currently. Lab tests are unremarkable. Based on CT reading, lumbar and dorsal spine obtained with no obvious lesions noted. Patient is scheduled to have PET scan with Dr. Corbett. I had advised patient follow up of her symptoms with Oncologist and Dr. Blackwell. Patient is more comfortable and will be discharged with prescription. - Lab Interpretations Lab Results: 05/24/17 12:18 05/24/17 12:18 Lab Results 05/24/17 12:18: Sodium 142, Potassium 4.1, Chloride 106, Carbon Dioxide 25, Anion Gap 15, BUN 18, Creatinine 0.8, Est GFR ( Amer) > 60, Est GFR (Non- Af Amer) > 60, Random Glucose 300 H, Calcium 10.0, Total Bilirubin 0.4, AST 21, ALT 13, Alkaline Phosphatase 46, Total Protein 7.0, Albumin 4.1, Globulin 2.9, Albumin/Globulin Ratio 1.4, Lipase 128 05/24/17 12:18: WBC 3.6 L D, RBC 3.96, Hgb 12.0, Hct 38.0, MCV 96.0 D, MCH 30.3 , MCHC 31.6, RDW 14.2, Plt Count 224, MPV 10.5, Gran % 46.5 L, Lymph % (Auto) 47.1 H, [place] % (Auto) 5.3, Eos % (Auto) 0.3 L, Baso % (Auto) 0.8, Gran # 1.68, Lymph # (Auto) 1.7, [place] # (Auto) 0.2, Eos # (Auto) 0.0, Baso # (Auto) 0.03 05/24/17 12:15: Urine Color Yellow, Urine Appearance Clear, Urine pH 6.0, Ur Specific [place] 1.020, Urine Protein Trace H, Urine Glucose (UA) >=1000, Urine Ketones Negative, Urine Blood Negative, Urine Nitrate Negative, Urine Bilirubin Negative, Urine Urobilinogen 0.2, Ur Leukocyte Esterase Negative, Urine RBC Negative, Urine WBC 10 - 15, Ur Epithelial Cells 0 - 2, Urine Bacteria Small I have reviewed the lab results: Yes - RAD Interpretation Radiology Orders: 05/24/17 11:57 ABD & PELVIS W/O PO OR IV CONT [CT] Stat CHEST TWO VIEWS (PA/LAT) [RAD] Stat 05/24/17 13:43 DORSAL (THORACIC) SPINE [RAD] Stat 05/24/17 13:44 LS SPINE WITH OBL > 18 YRS OLD [RAD] Stat - Medication Orders Current Medication Orders: Discontinued Medications Tramadol HCl (Ultram) 50 mg PO STAT STA Stop: 05/24/17 11:59 Last Admin: 05/24/17 12:49 Dose: 50 mg MAR Pain Assessment Document 05/24/17 12:49 SRE (Rec: 05/24/17 12:50 SRE [id number]) Pain Reassessment Is this a pain reassessment? Yes Sleep Is patient sleeping during reassessment? No Presence of Pain Presence of Pain Yes Pain Scale Used Pain Scale Used Numeric Location Left, Right or Bilateral Left Pain Location Body Site Abdomen Description Description Intermittent - Scribe Statement The provider has reviewed the documentation as recorded by the Scribe Capri Quiroz Provider Scribe Attestation: All medical record entries made by the Scribe were at my direction and personally dictated by me. I have reviewed the chart and agree that the record accurately reflects my personal performance of the history, physical exam, medical decision making, and the department course for this patient. I have also personally directed, reviewed, and agree with the discharge instructions and disposition. Disposition/Present on Arrival - Present on Arrival Any Indicators Present on Arrival: Yes History of DVT/PE: No History of Uncontrolled Diabetes: Yes Urinary Catheter: No History of Decub. Ulcer: No History Surgical Site Infection Following: None - Disposition Have Diagnosis and Disposition been Completed?: Yes Diagnosis: Flank pain, Back pain Disposition: HOME/ ROUTINE Disposition Time: 15:45 Patient Plan: Discharge Condition: GOOD Discharge Instructions (ExitCare): Flank Pain (ED), Back Pain (ED) Additional Instructions: For any rash, any cough or shortness of breath, any fever, any nausea or vomiting, any leg pain or swelling, any numbness or weakness, any night sweats/ weight loss, any persistent or worsening of any symptoms, get rechecked. Follow-up with your doctor as well as oncologist Dr. Corbett as directed. Follow-up with PET scan as scheduled. Prescriptions: traMADol [Ultram] 50 mg PO BID PRN #6 tab PRN Reason: Pain, Severe (8-10) Referrals: Samir Blackwell MD [Primary Care Provider] - Follow up with primary Bravo Corbett MD [Medical Doctor] - Follow up with primary Forms: [employer] ([place]ish)
[2017-05-24 12:52] LABS: BASO # 0.03 K/mm3 (0.0-2.0); BASO % 0.8 % (0.0-3.0); EOS % 0.3 % (1.5-5.0); GRAN # 1.68 (1.4-6.5); GRAN % 46.5 % (50.0-68.0); LYMPH # 1.7 (1.2-3.4); LYMPH % 47.1 % (22.0-35.0); MEAN CORPUSCULAR HEMOGLOBIN 30.3 pg (25.0-35.0); MEAN CORPUSCULAR HGB CONC 31.6 g/dl (31.0-37.0); MEAN PLATELET VOLUME 10.5 fl (7.0-11.0); MONO # 0.2 (0.1-0.6); MONO % 5.3 % (1.0-6.0); RBC 3.96 10^6/uL (3.5-6.1); RED CELL DISTRIBUTION WIDTH 14.2 % (11.5-14.5); WHITE BLOOD COUNT 3.6 10^3/ul (4.5-11.0)
[2017-05-24 12:53] LABS: URINE BILIRUBIN NEGATIVE (NEGATIVE); URINE BLOOD NEGATIVE (NEGATIVE); URINE GLUCOSE (UA) >=1000 mg/dL (NEGATIVE); URINE LEUKOCYTE ESTERASE NEGATIVE Leu/uL (NEGATIVE); URINE NITRATE NEGATIVE (NEGATIVE); URINE PROTEIN TRACE mg/dL (<30 mg/dL); URINE UROBILINOGEN 0.2 E.U./dL (<1 E.U./dL)
[2017-05-24 12:57] LABS: URINE APPEARANCE CLEAR (CLEAR); URINE COLOR YELLOW (YELLOW)
[2017-05-24 13:09] LABS: ALB/GLOB RATIO 1.4 (1.1-1.8); ALBUMIN 4.1 g/dL (3.0-4.8); ALT/SGPT 13 U/L (7-56); AST/SGOT 21 U/L (14-36); BLOOD UREA NITROGEN 18 mg/dL (7-21); GFR AFRICAN-AMERICAN > 60; GFR NON-AFRICAN AMERICAN > 60; LIPASE 128 U/L (23-300)
[2017-05-24 13:14] LABS: URINE BACTERIA SMALL (NEG); URINE EPITHELIAL CELLS 0 - 2 /hpf (0-5); URINE RBC NEGATIVE /hpf (0-2)
--- NOTE | 2017-05-24 13:34 | CT ---
PROCEDURE: CT Abdomen and Pelvis without intravenous contrast HISTORY: upper left sided abdominal/back pain COMPARISON: Chest CT with contrast 12/18/2015 and chest and pelvis CT examination 10/14/2014. TECHNIQUE: Helical CT of the abdomen and pelvis was performed without oral or intravenous contrast as per referring physician request. Contrast Dose: None Radiation dose: Total exam DLP = 1487.14 mGy-cm. This CT exam was performed using one or more of the following dose reduction techniques: Automated exposure control, adjustment of the mA and/or kV according to patient size, and/or use of iterative reconstruction technique. FINDINGS: LOWER THORAX: Two 4 mm nodules are noncalcified at the right lower lobe with the more medial nodule appearing subpleural relative to the major fissure in image 9 series 5 and potential additional subpleural nodule seen at the right lower lobe at the major fissure in image 8. No infiltrate or pleural effusion encountered bilaterally. Postop changes seen the left breast and possibly the right as well. LIVER: Unremarkable. No gross lesion or ductal dilatation. GALLBLADDER AND BILE DUCTS: Gallbladder is contracted. No radiodense cholelithiasis appears associated. PANCREAS: Unremarkable. No gross lesion or ductal dilatation. SPLEEN: Unremarkable. ADRENALS: Unremarkable. No mass. KIDNEYS AND URETERS: Unremarkable. No hydronephrosis. VASCULATURE: Unremarkable. No aortic aneurysm. BOWEL: The bowel is not appear obstructed. Extensive left hemicolon and mid to distal transverse colon diverticular changes are identified without definite diverticulitis pattern at this time. Lack of oral contrast limits evaluation of small large-bowel. Under opacified small bowel loops appear unremarkable and there is moderate retained fecal material throughout the large bowel. Retained food and fluid distended stomach somewhat. APPENDIX: Unremarkable. Normal appendix. PERITONEUM: No free fluid. No free air. A tiny umbilical hernia contains only fat once again and is stable in appearance. LYMPH NODES: Unremarkable. No enlarged lymph nodes. BLADDER: Unremarkable. REPRODUCTIVE: Unremarkable. BONES: A mild increase in multifocal sclerotic lesions are seen scattered scattered throughout the sacrum and pelvic bones somewhat as well as infrequently throughout the thoracolumbar spine as well. OTHER FINDINGS: Bilateral abdominal wall postoperative changes are minimally encountered. IMPRESSION: No definitive acute abdominal or pelvic pathology grossly evident on this unenhanced examination which is consequently limited due to lack contrast agents. Extensive left colonic and mid to distal transverse colonic diverticular changes are noted without diverticulitis once again. No obstructive uropathy or radiodense urolithiasis bilaterally once again. A mild increase in multifocal thoracolumbar sacral and remaining pelvic sclerotic bony lesions are identified in the interval in this patient with a known history of breast cancer.
--- NOTE | 2017-05-24 14:28 | RAD ---
HISTORY: left sided rib pain COMPARISON: Chest radiograph dated 11/30/2016. TECHNIQUE: Chest PA and lateral FINDINGS: LUNGS: No active pulmonary disease. PLEURA: No significant pleural effusion identified. No pneumothorax apparent. CARDIOVASCULAR: Normal. OSSEOUS STRUCTURES: Nonspecific proximal right humeral sclerotic region similar in appearance dating back to 03/30/2014. Unchanged. VISUALIZED UPPER ABDOMEN: Left upper quadrant/ epigastric region surgical clips. OTHER FINDINGS: None. IMPRESSION: No active disease.
[2017-05-24 15:49] VITALS: BP 162/100; PULSE 88; RESP 20; O2SAT 96
[2017-05-24 15:50] VITALS: TEMP 97.8
--- NOTE | 2017-05-24 17:15 | RAD ---
HISTORY: Back pain, left-sided. No antecedent history of trauma. COMPARISON: No prior. FINDINGS: BONES: Alignment maintained. No fracture. DISC SPACES: Normal. SOFT TISSUES: Normal. OTHER FINDINGS: None. IMPRESSION: Normal radiographs of the thoracic spine.
--- NOTE | 2017-05-24 17:18 | RAD ---
PROCEDURE: Radiographs of the Lumbar Spine. HISTORY: Left-sided back Pain. No history of recent/ related trauma provided Relevant medical history: hx of breast cancer COMPARISON: No prior. FINDINGS: BONES: Sclerotic lesions within the visualized iliac bones and right claire sacrum. No lytic or sclerotic abnormalities identified in the visualized lumbar or thoracic spine DISC SPACES: Unremarkable. OTHER FINDINGS: None. IMPRESSION: No acute findings related to/accounting for the clinical presentation. Sclerotic metastasis incompletely visualized in the pelvis.
== END 2017-05-24 16:00 | disposition home or self-care (01) ==
LOC: ED 11:00
DX: R10.9 Unspecified abdominal pain (principal); M54.9 Dorsalgia, unspecified; I10 Essential (primary) hypertension; E11.9 Type 2 diabetes mellitus without complications; Z85.3 Personal history of malignant neoplasm of breast

== ENCOUNTER 2017-11-22 07:37 | Day surgery (SDC) | payer BC ==
[2017-11-13 14:40] VITALS: BMI 49.4
[2017-11-22] MEDS ORDERED: Propofol 10 mg/ml Inj (20 ML) ONE (09:05)
[2017-11-22] MEDS ORDERED: Succinylcholine 200 mg/10 ml Inj IV ONE (09:40)
[2017-11-22] MEDS ORDERED: Sodium Chloride 0.9% 1,000 ML IV SCH (10:00)
[2017-11-22 11:39] VITALS: BP 124/81; PULSE 84; RESP 18; TEMP 97.3; O2SAT 96
== END 2017-11-22 11:33 | disposition home or self-care (01) ==
LOC: ENDO 07:37
PROVIDERS: ATTEND Internal Medicine Gastroenterology
DX: K22.70 Barrett's esophagus without dysplasia (principal); K29.50 Unspecified chronic gastritis without bleeding; B96.81 Helicobacter pylori [H. pylori] as the cause of diseases classified elsewhere; K21.9 Gastro-esophageal reflux disease without esophagitis; K57.30 Diverticulosis of large intestine without perforation or abscess without bleeding; K25.9 Gastric ulcer, unspecified as acute or chronic, without hemorrhage or perforation; K29.80 Duodenitis without bleeding; K64.8 Other hemorrhoids; Z86.010 Personal history of colon polyps
CPT/HCPCS: 43239; 45378; 82948; 88305; 88312; 88342; J0330; J2001; J2704; J7030; J7040

== ENCOUNTER 2018-03-14 12:36 | Day surgery (SDC) | payer BC ==
[2018-03-05 11:24] VITALS: BMI 36.0
[2018-03-14] MEDS ORDERED: Propofol 10 mg/ml Inj (20 ML) ONE ×2 (13:38→14:28)
[2018-03-14] MEDS ORDERED: Sodium Chloride 0.9% 1,000 ML IV SCH (13:45)
[2018-03-14] MEDS ORDERED: Lidocaine 1% Inj (20ml) ONE (14:05)
[2018-03-14 16:42] VITALS: BP 139/94; PULSE 83; RESP 16; TEMP 98.1; O2SAT 100
== END 2018-03-14 16:08 | disposition home or self-care (01) ==
LOC: ENDO 12:36
PROVIDERS: ATTEND Internal Medicine Gastroenterology
DX: K25.9 Gastric ulcer, unspecified as acute or chronic, without hemorrhage or perforation (principal); K22.2 Esophageal obstruction; K21.9 Gastro-esophageal reflux disease without esophagitis; K29.50 Unspecified chronic gastritis without bleeding; B96.81 Helicobacter pylori [H. pylori] as the cause of diseases classified elsewhere; K44.9 Diaphragmatic hernia without obstruction or gangrene; E11.9 Type 2 diabetes mellitus without complications; I10 Essential (primary) hypertension; Z85.3 Personal history of malignant neoplasm of breast
CPT/HCPCS: 43239; 82948; 88305; 88342; J2001; J2405; J2704; J7030; J7040

== ENCOUNTER 2018-06-01 13:14 | Emergency (ER) | payer BC ==
[2018-06-01 13:14] VITALS: BMI 36.0
[2018-06-01 13:30] VITALS: RESP 18
--- NOTE | 2018-06-01 15:28 | ED PDOC ---
Arrival/HPI - General Chief Complaint: Upper Extremity Problem/Injury Time Seen by Provider: 06/01/18 13:15 Historian: Patient - History of Present Illness Narrative History of Present Illness (Text): 06/01/18 15:15 57 year old female, whose past medical history includes breast cancer with bone mets s/p b/l mastectomy, hypertension, hyperlipidemia, asthma, sciatica, and recently discovered sacrum bone mets (starting radiation next week), presents to the emergency department complaining of worsening neck pain radiating to both arms for the past month. Patient reports more pain on the right arm than on the left arm and reports decrease range of motion to both shoulders. She states she took Tramadol with some relief. Patient denies any fever, chills, chest pain, shortness of breath, nausea, vomiting, diarrhea, urinary symptoms, back pain, headache, dizziness, or any other complaints. PMD: Dr. Blackwell Oncologist: Dr. Corbett Time/Duration: Other (one month) Symptom Onset: Gradual Symptom Course: Unchanged Activities at Onset: Light Context: Home Past Medical History - Provider Review Nursing Documentation Reviewed: Yes - Infectious Disease Hx of Infectious Diseases: None - Tetanus Immunization Tetanus Immunization: Unknown - Reproductive Menopause: Yes - Cardiac Hx Hypertension: Yes - Pulmonary Hx Respiratory Disorders: Yes Hx Asthma: Yes - Neurological Hx Paralysis: No - HEENT Hx HEENT Disorder: Yes (WEARS RX GLASSES) - Renal Hx Renal Disorder: No - Endocrine/Metabolic Hx Endocrine Disorders: Yes Hx Diabetes Mellitus Type 2: Yes - Hematological/Oncological Hx Cancer: Yes (Breast cancer) - Integumentary Hx Dermatological Disorder: No - Musculoskeletal/Rheumatological Hx Musculoskeletal Disorders: Yes - Gastrointestinal Hx Gastrointestinal Disorders: No - Genitourinary/Gynecological Hx Genitourinary Disorders: No - Psychiatric Hx Emotional Abuse: No Hx Physical Abuse: No Hx Substance Use: No - Surgical History Hx Mastectomy: Yes (B/L) - Anesthesia Hx Anesthesia Reactions: Yes (EPINEPHINE MADE HER VERY SHAKEY) Hx Malignant Hyperthermia: No - Suicidal Assessment Feels Threatened In Home Enviroment: No Family/Social History - Physician Review Nursing Documentation Reviewed: Yes Family/Social History: No Known Family HX Smoking Status: Never Smoked Hx Alcohol Use: Yes (RARE) Hx Substance Use: No Hx Substance Use Treatment: No Allergies/Home Meds Allergies/Adverse Reactions: Allergies Latex, Natural Rubber Allergy (Verified 06/01/18 13:30) RASH theophylline Allergy (Verified 06/01/18 13:30) ITCHING epinephrine Adverse Reaction (Verified 06/01/18 13:30) DIZZINESS Home Medications: Home Meds Medication Instructions Recorded Confirmed Rosuvastatin Calcium [Crestor] 5 mg PO DAILY 11/13/17 06/01/18 Albuterol Sulfate [Proair Hfa] 0.09 mg IH Q4H PRN 03/05/18 06/01/18 Aspirin [Lo-Dose Aspirin EC] 81 mg PO DAILY 03/05/18 06/01/18 Carvedilol [Coreg] 3.125 mg PO DAILY 03/05/18 06/01/18 Denosumab [Xgeva] 120 mg SC Q30D 03/05/18 06/01/18 Fluticasone/Vilanterol [Breo 1 each IH DAILY 03/05/18 06/01/18 Ellipta 200-25 Mcg INH] Insulin Glargine,Hum.rec.anlog 52 unit SQ HS 03/05/18 06/01/18 [Toujeo Solostar] Insulin Lispro [Humalog Kwikpen 15 unit SQ AC 03/05/18 06/01/18 U-100] Lactobacillus Combination No.8 1 each PO DAILY 03/05/18 06/01/18 [Adult Probiotic] Letrozole [Femara] 2.5 mg PO DAILY 03/05/18 06/01/18 [place]-3/Dha/Epa/Fish Oil [Fish Oil 1 each PO DAILY 03/05/18 06/01/18 500 mg Softgel] Palbociclib [Ibrance] 75 mg PO DAILY 03/05/18 06/01/18 RX: Alpha Lipoic Acid 600 mg PO DAILY 03/05/18 06/01/18 Tiotropium [Spiriva] 18 mcg IH DAILY 03/05/18 06/01/18 Tumeric 1,000 mg PO DAILY 03/05/18 06/01/18 RX: Indapamide [Lozol] 1.25 mg PO DAILY 06/01/18 06/01/18 RX: Potassium Chloride [Klor-Con 10 meq PO DAILY 06/01/18 06/01/18 10] Review of Systems - Physician Review All systems were reviewed & negative as marked: Yes - Review of Systems Constitutional: absent: Fevers, Other (chills) Respiratory: absent: SOB Cardiovascular: absent: Chest Pain Gastrointestinal: absent: Diarrhea, Nausea, Vomiting Genitourinary Female: absent: Dysuria, Frequency, Hematuria Musculoskeletal: Neck Pain (shooting pain down to both arms ). absent: Back Pain Neurological: absent: Headache, Dizziness Physical Exam Vital Signs Reviewed: Yes Vital Signs Temp Pulse Resp BP Pulse Ox 06/01/18 13:25 98 F 106 H 18 140/86 100 Temperature: Afebrile Blood Pressure: Normal Pulse: Tachycardic Respiratory Rate: Normal Appearance: Positive for: Well-Appearing, Non-Toxic, Comfortable Pain Distress: None Mental Status: Positive for: Alert and Oriented X 3 - Systems Exam Head: Present: Atraumatic, Normocephalic Pupils: Present: PERRL Extroacular Muscles: Present: EOMI Conjunctiva: Present: Normal Mouth: Present: Moist Mucous Membranes Neck: Present: Other (tender diffusely down her neck to shoulders. Right shoulder > Left shoulder ) Respiratory/Chest: Present: Clear to Auscultation, Good Air Exchange. No: Respiratory Distress, Accessory Muscle Use Cardiovascular: Present: Regular Rate and Rhythm, Normal S1, S2. No: Murmurs Abdomen: No: Tenderness, Distention, Peritoneal Signs Back: Present: Normal Inspection Upper Extremity: Present: Normal Inspection, NORMAL PULSES, Tenderness (right and left shoulder), Neurovascularly Intact. No: Cyanosis, Edema, Normal ROM (Right shoulder decreased ROM due to pain. ) Lower Extremity: Present: Normal Inspection. No: Edema Neurological: Present: GCS=15, Speech Normal, Motor Func Grossly Intact, Normal Sensory Function, Gait Normal Skin: Present: Warm, Dry, Normal Color. No: Rashes Psychiatric: Present: Alert, Oriented x 3, Normal Insight, Normal Concentration Medical Decision Making ED Course and Treatment: 06/01/18 14:20 Impression: 57 year old female presents complaining of worsening neck pain radiating to both arms for the past 1 month. Differential Diagnosis included but are not limited to: r/o metastasis Plan: -- CT Cervical Spine w/o contrast -- Flexeril, Toradol -- Shoulder left x-ray, shoulder right x-ray -- Reassess and disposition Prior Visits: Notes and results from previous visits were reviewed. Progress Notes: Shoulder Left x-ray Dictator : Gonzales Gaytan MD Report Date : 06/01/2018 15:46:45 IMPRESSION: No definitive radiographic evidence of acute displaced fracture nor dislocation. Sclerotic lesion right humeral neck possibly representing metastatic deposit. Clinical correlation recommended. Mild Shoulder right x-ray Dictator : Gonzales Gaytan MD Report Date : 06/01/2018 15:50:39 IMPRESSION: No acute fractures. Mild degenerative osteoarthritis as above no suspicious lytic or blastic lesions identified PROCEDURE: CT Cervical Spine without contrast Dictator : Gonzales Gaytan MD Report Date : 06/01/2018 16:49:50 IMPRESSION: There are sclerotic metastatic lesions seen within the C7 and T1 segments on. No acute compression fractures. Mild multilevel degenerative spondylosis of the cervical spine as above. 06/01/18 18:44 I explained to patient in detail her CT and Xray results. She is neurovascularly intact. She will make sure followup with her Oncologist and PMD as soon as possilbe. She already has an appt set up. - RAD Interpretation Radiology Orders: 06/01/18 14:25 CERVICAL SPINE W/O CONTRAST [CT] Stat SHOULDER LEFT [RAD] Stat SHOULDER RIGHT [RAD] Stat Fisher Spear: Radiologist - Medication Orders Current Medication Orders: Discontinued Medications Cyclobenzaprine HCl (Flexeril) 10 mg PO STAT STA Stop: 06/01/18 14:26 Last Admin: 06/01/18 15:02 Dose: 10 mg Ketorolac Tromethamine (Toradol) 60 mg IM STAT STA Stop: 06/01/18 14:26 Last Admin: 06/01/18 15:03 Dose: 60 mg [facility] Pain Assessment Document 06/01/18 15:03 GMI (Rec: 06/01/18 15:04 GMI [id number]) Pain Reassessment Is this a pain reassessment? Yes Sleep Is patient sleeping during reassessment? No Presence of Pain Presence of Pain Yes Pain Scale Used Protocol: PSCALES Pain Scale Used Numeric Location Left, Right or Bilateral Right Upper or Lower Upper Pain Location Body Site Shoulder Description Description Constant Intensity of Pain at present 9 Pain Behavior Facial Grimacing Alleviating Factors/Management Relaxation Techniques Techniques Inactivity Alleviating Factors Medication IM Administration Charges Document 06/01/18 15:03 GMI (Rec: 06/01/18 15:04 GMI [id number]) Injection Site MAR Injection Site Right Deltoid Charges for Administration # of IM Administrations 1 - Scribe Statement The provider has reviewed the documentation as recorded by the Valeria Ellis Provider Scribe Attestation: All medical record entries made by the Scribe were at my direction and personally dictated by me. I have reviewed the chart and agree that the record accurately reflects my personal performance of the history, physical exam, medical decision making, and the department course for this patient. I have also personally directed, reviewed, and agree with the discharge instructions and disposition. Disposition/Present on Arrival - Present on Arrival Any Indicators Present on Arrival: Yes History of DVT/PE: No History of Uncontrolled Diabetes: Yes Urinary Catheter: No History of Decub. Ulcer: No History Surgical Site Infection Following: None - Disposition Have Diagnosis and Disposition been Completed?: Yes Diagnosis: Cervical mass, Shoulder mass Disposition: HOME/ ROUTINE Disposition Time: 18:00 Patient Plan: Discharge Condition: IMPROVED Discharge Instructions (ExitCare): Bone Cancer Additional Instructions: AMELAI SWAN, thank you for letting us take care of you today. Your provider was Sushant Vera DO and you were treated for Cervical Mass, Shoulder Mass. The emergency medical care you received today was directed at your acute symptoms. If you were prescribed any medication, please fill it and take as directed. It may take several days for your symptoms to resolve. Return to the Emergency Department if your symptoms worsen, do not improve, or if you have any other problems. Please contact your doctor or call one of the physicians/clinics you have been referred to that are listed on the Patient Visit Information form that is included in your discharge packet. Bring any paperwork you were given at discharge with you along with any medications you are taking to your follow up visit. Our treatment cannot replace ongoing medical care by a primary care provider outside of the emergency department. Thank you for allowing the [facility] team to be part of your care today. If you had an X-Ray or CT scan: A Radiologist will review the ED reading if any change in treatment is needed we will contact you. If you had a blood, urine, or wound culture: It will take several days for the results, if any change in treatment is needed we will contact you. If you had an STI test: It will take 48 hours for the results. Please call after 1 week if you have not heard back. Referrals: Samir Blackwell MD [Primary Care Provider] - Follow up with primary Forms: [employer] ([place]ani)
--- NOTE | 2018-06-01 15:50 | RAD ---
Date of service: 06/01/2018 PROCEDURE: Radiographs of the Right Shoulder HISTORY: shoulder pain h/o breast ca with bone met s COMPARISON: Comparison made with chest radiograph dated 05/24/2017 which image the right shoulder FINDINGS: BONES: No definitive radiographic evidence of acute displaced fracture nor dislocation. There is a sclerotic density overlying the right humeral neck of uncertain etiology however metastatic deposit must be excluded. JOINTS: A degenerative osteoarthritis right acromioclavicular and to a lesser degree right renal humeral joints. SOFT TISSUES: Normal. OTHER FINDINGS: None. IMPRESSION: No definitive radiographic evidence of acute displaced fracture nor dislocation. Sclerotic lesion right humeral neck possibly representing metastatic deposit. Clinical correlation recommended. Mild
--- NOTE | 2018-06-01 15:54 | RAD ---
Date of service: 06/01/2018 PROCEDURE: Radiographs of the Left Shoulder HISTORY: Shoulder pain h/o breast ca with bone mets COMPARISON: Comparison made with chest radiograph dated 05/24/2017 FINDINGS: BONES: Normal. No fracture. No obvious suspicious sclerotic or lytic lesions. JOINTS: Mild degenerative osteoarthritis left acromioclavicular and to a lesser degree the left the no humeral joints. SOFT TISSUES: Normal. OTHER FINDINGS: None. IMPRESSION: No acute fractures. Mild degenerative osteoarthritis as above no suspicious lytic or blastic lesions identified
--- NOTE | 2018-06-01 16:53 | CT ---
Date of service: 06/01/2018 PROCEDURE: CT Cervical Spine without contrast HISTORY: Upper body pain in a patient with a history breast carcinoma and bone metastases. COMPARISON: None available. TECHNIQUE: Axial computed tomography images were obtained of the cervical spine without the use of intravenous contrast. Coronal and sagittal reformatted images were created and reviewed. Radiation dose: Total exam DLP = 557.87 mGy-cm. This CT exam was performed using one or more of the following dose reduction techniques: Automated exposure control, adjustment of the mA and/or kV according to patient size, and/or use of iterative reconstruction technique. FINDINGS: VERTEBRAE: There are sclerotic lesions seen within the T1 and C7 segments consistent with metastatic deposits. No acute compression fractures nor retropulsed fragments. There is slight straightening of the normal cervical lordosis which may be secondary to patient positioning gantry however underlying element of muscle spasm may contribute. Vertebral bodies otherwise exhibit normal alignment. Facets normally aligned. DISCS/SPINAL CANAL/NEURAL FORAMINA: Minor multilevel degenerative spondylosis present. At the C2-C3 level, there is mild posterior disc space narrowing and cortical irregularity. Small broad-based bulge of the posterior annulus flattens the ventral surface of the thecal sac reaching and minimally if at all flattening the ventral surface of the cord. The central canal slightly narrowed at this level. Slightly hypertrophic left-sided uncovertebral joint changes with mild left-sided foraminal narrowing. Right exit foramen is adequate. At the C3-C4 level, there is adequate disc height. Small broad-based bulge of the posterior annulus is also present and results in mild flattening of the ventral surface of the thecal sac and spinal cord. Central canal is marginal to slightly narrowed at this level. Exit foramina adequate. At the C4-C5 level, there is minimal broad-based bulge of the posterior annulus. The facet joints are hypertrophic on the left. Minimal degenerative squaring of the uncovertebral joints. The central canal appears marginal to adequate. Left exit foramen is narrowed. Exit foramina appear adequate. PARASPINAL SOFT TISSUES: Unremarkable. OTHER FINDINGS: None. IMPRESSION: There are sclerotic metastatic lesions seen within the C7 and T1 segments on. No acute compression fractures. Mild multilevel degenerative spondylosis of the cervical spine as above.
[2018-06-01 17:34] VITALS: BP 123/72; PULSE 79; O2SAT 98
[2018-06-01 17:45] VITALS: TEMP 98
== END 2018-06-01 17:43 | disposition home or self-care (01) ==
LOC: ED 13:14
DX: R22.1 Localized swelling, mass and lump, neck (principal); R22.31 Localized swelling, mass and lump, right upper limb; C79.51 Secondary malignant neoplasm of bone; Z85.3 Personal history of malignant neoplasm of breast; Z90.13 Acquired absence of bilateral breasts and nipples; I10 Essential (primary) hypertension; E78.5 Hyperlipidemia, unspecified; E11.9 Type 2 diabetes mellitus without complications; Z79.899 Other long term (current) drug therapy
CPT/HCPCS: 72125; 73030; 96372; 99284; J1885